=== PATIENT | female | born 1955 | race Caucasian/White ===

== ENCOUNTER → 2017-03-08 | Outpatient (CLI) | payer OTHER ==
[~2017-03-08] MED LIST: BIOTPOW17 PO; CHOL100010 PO; CITA20TA4 PO; CLX/20 PO; CYAN100048 PO; DICL1GEL12 EXT; HYDR-5688 PO; LOSA100T65 PO; MULT-506 PO; PRLSR20 PO; TRAM-10 PO; VITAMIN B12 SC; VITAMIN B12 SL
[2017-03-08 17:42] LABS: MEAN CELL VOLUME 93.2 fL (80-100); MEAN CORPUSCULAR HGB CONC 31.1 g/dl (32-36); MEAN PLATELET VOLUME 9.4 fL (7.4-10.4); PLATELET COUNT 254 K/uL (130-400); RED BLOOD COUNT 3.97 M/uL (4.2-5.4); WHITE BLOOD COUNT 3.91 K/uL (4.8-10.8)
[2017-03-08 18:06] LABS: ALT/SGPT 15 U/L (12-78); AST/SGOT 13 U/L (15-37); BLOOD UREA NITROGEN 14 mg/dl (7-18); BUN/CREATININE RATIO 24.5 (10-20); CALCIUM 8.6 mg/dl (8.5-10.1); CARBON DIOXIDE 30 mmol/L (21-32); CHLORIDE 107 mmol/L (98-107); CREATININE 0.57 mg/dl (0.60-1.20); GLUCOSE 76 mg/dl (70-99); POTASSIUM 4.7 mmol/L (3.5-5.1); SODIUM 142 mmol/L (136-145)
[2017-03-08 18:09] LABS: ALB/GLOB RATIO 1.1 (0.9-2); ALKALINE PHOSPHATASE 76 U/L (45-117); CHOLESTEROL 216 mg/dl (0-200); CHOLESTEROL/HDL RATIO 2.8; HDL CHOLESTEROL 76 mg/dl; LDL CHOLESTEROL CALCULATED 129 mg/dl; TRIGLYCERIDES 57 mg/dl (0-150); VERY LOW DENSITY LIPOPROT CALC 11 mg/dl
== END | disposition home or self-care (01) ==
LOC: C.LABBFT 12:13
PROVIDERS: ATTEND Physician Assistant Medical
DX: D64.9 Anemia, unspecified (principal); E78.5 Hyperlipidemia, unspecified; E55.9 Vitamin D deficiency, unspecified; E53.8 Deficiency of other specified B group vitamins

== ENCOUNTER 2017-03-27 08:52 | Inpatient (IN) | payer OTHER ==
[2017-03-27] VITALS (8 sets, daily range): BP systolic 111–134; BP diastolic 60–76; PULSE 68–79; TEMP 36.6–37.1; O2SAT 94–99; Ht 160 cm; Wt 67.2 kg
[~2017-03-27] VITALS: Ht 160 cm; Wt 67.2 kg
[~2017-03-27 08:52] MED LIST changes: -CLX/20 PO; -CYAN100048 PO; -HYDR-5688 PO
[2017-03-27] MEDS ORDERED: ONDANSETRON INJ 2 MG/ML 2 ML VIAL IV STA (09:10)
[2017-03-27] MEDS ORDERED: MoRPHine SULFATE 10 MG/ML CARP/VIAL IV STA (09:10)
[2017-03-27] MEDS ORDERED: OPTIRAY 320 IV PRN (09:15)
[2017-03-27] MEDS ORDERED: CLX/20 PO (09:46)
[2017-03-27 09:48] LABS: BASO % 0.2 %; BASO ABS # 0.01 K/uL (0-0.2); COMPLETE YES; EOS % 0.2 %; IG% 0.2 %; LYMPH % 8.9 %; LYMPH ABS # 0.56 K/uL (1.2-3.4); MEAN CELL VOLUME 90.9 fL (80-100); MEAN CORPUSCULAR HEMOGLOBIN 28.9 pg (25-34); MEAN CORPUSCULAR HGB CONC 31.8 g/dl (32-36); MEAN PLATELET VOLUME 9.4 fL (7.4-10.4); NEUT % 84.5 %; PLATELET COUNT 259 K/uL (130-400); RED BLOOD COUNT 4.29 M/uL (4.2-5.4); WHITE BLOOD COUNT 6.29 K/uL (4.8-10.8)
--- NOTE | 2017-03-27 09:48 | EMERGENCY ROOM VISIT NOTE ---
ED Visit Note First contact with patient: 09:01 I have seen and examined this patient with Marisol Montoya and generally agree with the treatment plan as discussed. Problem List Medical Problems: (1) Aortic stenosis Status: Chronic (2) Depressive Disorder Nec Status: Chronic (3) Hx-Venous Thrombosis&Embolism Status: Chronic (4) Hyperlipidemia Nec/Nos Status: Chronic (5) Hypertension Nos Status: Chronic (6) Lumb/Lumbosac Disc Degen Status: Chronic (7) Osteoarthrosis-Mult Site Status: Chronic (8) Other Chronic Pain Status: Chronic Surgical Problems: (1) Aortocoronary Bypass Status: Chronic (2) Bariatric Surgery Status Status: Resolved (3) Hip Joint Replacement Status Status: Chronic (4) Hx of cholecystectomy Status: Resolved (5) Intestinal Bypass Status Status: Resolved Current/Historical Medications Scheduled Citalopram (Citalopram Hydrobromide), 20 MG PO DAILY Losartan Potassium (Cozaar), 100 MG PO QAM Multivitamin (Multivitamin), 1 TAB PO QAM Tramadol (Ultram), 100 MG PO TID PRN Scheduled PRN Diclofenac Sodium (Topical) (Voltaren 1% Top Gel), 1 DOSE EXT DAILY PRN for Pain Omeprazole (Prilosec), 20 MG PO QAM PRN for Indigestion Allergies Coded Allergies: No Known Allergies (Verified , 12/29/15) Vital Signs Date Time Temp Pulse Resp B/P (MAP) Pulse Ox O2 Delivery O2 Flow Rate FiO2 03/27/17 09:32 98 Room Air 03/27/17 09:31 78 18 132/90 97 Room Air 03/27/17 09:30 80 03/27/17 08:56 36.7 83 18 157/72 98 Room Air Laboratory Results Test 03/27/17 09:15 Medications Administered Medications (Trade) Dose Ordered Sig/Luci Route Start Time Stop Time Status Last Admin Dose Admin Morphine Sulfate (MoRPHine SULFATE INJ) 6 mg NOW STAT IV 03/27/17 09:10 03/27/17 09:12 DC 03/27/17 09:25 6 MG Ondansetron HCl (Zofran Inj) 4 mg NOW STAT IV 03/27/17 09:10 03/27/17 09:13 DC 03/27/17 09:25 4 MG Departure Information Referrals Maurisio Srinivasan M.D. (PCP) Patient Instructions My [facility]
[2017-03-27] MEDS ORDERED: CHOL100010 PO (09:51)
[2017-03-27] MEDS ORDERED: CYAN100048 PO (09:51)
[2017-03-27 10:07] LABS: CALCIUM 8.8 mg/dl (8.5-10.1)
[2017-03-27 10:08] LABS: BUN/CREATININE RATIO 16.4 (10-20); CREATININE 0.56 mg/dl (0.60-1.20); POTASSIUM 3.8 mmol/L (3.5-5.1)
[2017-03-27] MEDS ORDERED: MoRPHine SULFATE 4 MG/ML 1 ML CARP\\VIAL IV STA ×2 (11:12→14:00)
[2017-03-27 12:44] LABS: URINE APPEARANCE CLEAR (CLEAR); URINE BILIRUBIN NEG (NEG); URINE COLOR YELLOW; URINE NITRITE NEG (NEG); URINE PH 5.5 (4.5-7.5); URINE SPECIFIC GRAVITY 1.009 (1.000-1.030); UROBILINOGEN NEG (NEG); ZZUR CULT IF INDIC CLEAN CATCH NO
--- NOTE | 2017-03-27 12:49 | DIAGNOSTIC IMAGING REPORT ---
ABDOMEN AND PELVIS CT WITH IV AND ORAL CONTRAST CT DOSE: 366.73 mGy.cm HISTORY: Pain periumbilical pain/history gastric bypass and adhesion removal TECHNIQUE: Multiaxial CT images of the abdomen and pelvis were performed following the use of intravenous and oral contrast. COMPARISON STUDY: 02/14/2012. FINDINGS: Lung bases are clear. Minimal pleural thickening bilaterally unchanged. Trace perihepatic ascites. Prior gastric bypass and cholecystectomy change. Findings of proximal to mid small bowel distention. No evidence for colonic distention. Moderate distention of the small bowel persists to the central and anterior pelvic region. Etiology of the obstructive pattern is unclear. No evidence for colonic distention. Trace amount of ascites within the pelvis. No significant abdominal or pelvic adenopathy. Slight biliary ductal prominence a postoperative basis. Prior bilateral total hip arthroplasties. IMPRESSION: 1. Findings consistent with developing distal small bowel obstructive change. 2. Etiology isn't clear, although there appears to be transitioning of caliber of the small bowel within the low anterior pelvic region. 3. Operative changes consistent with prior gastric bypass and cholecystectomy change. 4. Trace amount of perihepatic and pelvic ascites. Electronically signed by: Austyn Montoya M.D. 03/27/2017 12:48 PM Dictated Date/Time: 03/27/2017 12:38 PM
[2017-03-27 12:54] LABS: MANUAL MICROSCOPIC REQUIRED? NO; REVIEW REQ? NO
--- NOTE | 2017-03-27 14:51 | History and Physical ---
History & Physical Date Mar 27, 2017. Chief Complaint pt with worsening mid-abdominal pain since monday..nothing relieves it. mild nausea but no emesis. has a hx of gastric bypass, umbilical hernia repair times 2, once with a small segment of bowel resection, and a prior dx laparoscopy about 7 years ago for pain exactly like this. they lysed adhesions and she has been good ever since. History of Present Illness The patient is a 61 year old female with complaints of Past Medical/Surgical History Medical Problems: (1) Aortic stenosis (2) Depressive Disorder Nec (3) Hx-Venous Thrombosis&Embolism (4) Hyperlipidemia Nec/Nos (5) Hypertension Nos (6) Lumb/Lumbosac Disc Degen (7) Osteoarthrosis-Mult Site (8) Other Chronic Pain Surgical Problems: (1) Aortocoronary Bypass (2) Bariatric Surgery Status (3) Hip Joint Replacement Status (4) Hx of cholecystectomy (5) Intestinal Bypass Status Additional History Hepatic Disease: No Endocrine Disorder: No Kidney Disease: No Hypertension: No Heart Disease: No Bleeding Tendencies: No Infectious Diseases: No Allergies Coded Allergies: No Known Allergies (Verified , 12/29/15) Home Medications Scheduled Cholecalciferol (Vitamin D), 1 TAB PO DAILY Citalopram (Citalopram Hydrobromide), 20 MG PO DAILY Cyanocobalamin (Vitamin B-12), 1 TAB PO DAILY Losartan Potassium (Cozaar), 100 MG PO QAM Multivitamin (Multivitamin), 1 TAB PO QAM Tramadol (Ultram), 100 MG PO TID PRN Scheduled PRN Diclofenac Sodium (Topical) (Voltaren 1% Top Gel), 1 DOSE EXT DAILY PRN for Pain Omeprazole (Prilosec), 20 MG PO QAM PRN for Indigestion Physical Examination Skin: warm/dry Eyes: normal inspection, EOMI Head: normocephalic, atraumatic Neck: supple, trachea midline Respiratory/Chest: no respiratory distress Cardiovascular: regular rate, rhythm Abdomen / GI: + pertinent finding (epigastric/mid-abdominal ttp. no g/r/r. no peritoneal signs.) Neurologic/Psych: alert, oriented x 3 Diagnosis abdominal pain- pt sure it is adhesions again. no leukocytosis. ct showing mildly dilated bowel loops c/w sbo discussed options with pt. she is very frustrated with the pain. has not eaten since last night. discussed options/risks of surgery ( bleeding/infection/dvt/pe/mi/injury to bowel/bladder etc..). answered questions. will proceed with dx laparoscopy [facility]ING[facility].
[2017-03-27] MEDS ORDERED: ROCURONIUM BROMIDE 10 MG/ML 5 ML VIAL ONE (15:03)
[2017-03-27] MEDS ORDERED: LIDOCAINE HCL 2% 2 ML VIAL (20MG/ML) ONE (15:03)
[2017-03-27] MEDS ORDERED: PROPOFOL IV EMULSION 10 MG/ML 20 ML VIAL IV ONE (15:03)
[2017-03-27] MEDS ORDERED: GLYCOPYRROLATE INJ 0.2 MG/ML VIAL ONE ×2 (15:03→16:34)
[2017-03-27] MEDS ORDERED: FENTANYL CITRATE INJ 50 MCG/1 ML 2 ML VIAL ONE (15:03)
[2017-03-27] MEDS ORDERED: ONDANSETRON INJ 2 MG/ML 2 ML VIAL ONE (15:03)
[2017-03-27] MEDS ORDERED: NEOSTIGMINE METHYLSULFATE 5 MG/5 ML SYR ONE ×2 (15:03→16:34)
[2017-03-27] MEDS ORDERED: MIDAZOLAM HCL 1 MG/ML 2ML VIAL ONE (15:03)
[2017-03-27] MEDS ORDERED: DEXAMETHASONE SOD INJ 4 MG/ML VIAL ONE (15:03)
--- NOTE | 2017-03-27 15:32 | EMERGENCY ROOM VISIT NOTE ---
History First contact with patient: 09:01 Chief Complaint: ABDOMINAL PAIN Stated Complaint: PAIN IN ABD History of Present Illness The patient is a 61 year old female who presents to the Emergency Room with complaints of periumbilical abdominal pain that started Monday evening. The patient admits to some nausea but denies any vomiting. The patient denies any change in bowel habits or any hematochezia or melena. The patient denies any urinary symptoms of frequency, urgency, dysuria. The patient states it feels similar to when she had adhesions 7 years ago. The patient had a gastric bypass and umbilical hernia repair 12 years ago. Her initial gastric bypass was performed at [facility] and the surgeon and went to [facility]. She had adhesion surgery performed at [facility]. Review of Systems 10 system review was performed and was negative unless stated otherwise history of present illness. Past Medical/Surgical History Medical Problems: (1) Aortic stenosis (2) Depressive Disorder Nec (3) Hx-Venous Thrombosis&Embolism (4) Hyperlipidemia Nec/Nos (5) Hypertension Nos (6) Lumb/Lumbosac Disc Degen (7) Osteoarthrosis-Mult Site (8) Other Chronic Pain Surgical Problems: (1) Aortocoronary Bypass (2) Bariatric Surgery Status (3) Hip Joint Replacement Status (4) Hx of cholecystectomy (5) Intestinal Bypass Status Social History Smoking Status: Never Smoker Alcohol Use: none Housing Status: lives alone Occupation Status: unemployed Current/Historical Medications Scheduled Cholecalciferol (Vitamin D), 1 TAB PO DAILY Citalopram (Citalopram Hydrobromide), 20 MG PO DAILY Cyanocobalamin (Vitamin B-12), 1 TAB PO DAILY Losartan Potassium (Cozaar), 100 MG PO QAM Multivitamin (Multivitamin), 1 TAB PO QAM Tramadol (Ultram), 100 MG PO TID PRN Scheduled PRN Diclofenac Sodium (Topical) (Voltaren 1% Top Gel), 1 DOSE EXT DAILY PRN for Pain Omeprazole (Prilosec), 20 MG PO QAM PRN for Indigestion Allergies Coded Allergies: No Known Allergies (Verified , 12/29/15) Physical Exam Vital Signs Date Time Temp Pulse Resp B/P (MAP) Pulse Ox O2 Delivery O2 Flow Rate FiO2 03/27/17 14:57 78 16 166/76 96 Room Air 03/27/17 14:19 76 20 150/70 97 Room Air 03/27/17 13:29 85 03/27/17 11:34 74 20 167/75 97 Room Air 03/27/17 11:04 78 16 137/80 96 Room Air 03/27/17 09:32 98 Room Air 03/27/17 09:31 78 18 132/90 97 Room Air 03/27/17 09:30 80 03/27/17 08:56 36.7 83 18 157/72 98 Room Air Physical Exam GENERAL: 61-y started about herear-old white female appears in no acute distress. MENTAL Status: Alert and oriented 3. EYES: No icterus noted MOUTH: Mucosa is moist. NECK: Supple, no lymphadenopathy noted. No carotid bruits noted. LUNGS: Clear auscultation without wheezes rales or rhonchi. CARDIAC: Regular rate and rhythm without murmur. Pulses is full and equal throughout. BACK: No CVA tenderness noted. ABDOMEN: Positive bowel sounds all 4 quadrants. Soft, very umbilical tenderness noted otherwise nontender to palpation without organomegaly or masses. EXTREMITIES: No cyanosis or edema noted. Medical Decision & Procedures ER Provider Diagnostic Interpretation: ABDOMEN AND PELVIS CT WITH IV AND ORAL CONTRAST CT DOSE: 366.73 mGy.cm HISTORY: Pain periumbilical pain/history gastric bypass and adhesion removal TECHNIQUE: Multiaxial CT images of the abdomen and pelvis were performed following the use of intravenous and oral contrast. COMPARISON STUDY: 02/14/2012. FINDINGS: Lung bases are clear. Minimal pleural thickening bilaterally unchanged. Trace perihepatic ascites. Prior gastric bypass and cholecystectomy change. Findings of proximal to mid small bowel distention. No evidence for colonic distention. Moderate distention of the small bowel persists to the central and anterior pelvic region. Etiology of the obstructive pattern is unclear. No evidence for colonic distention. Trace amount of ascites within the pelvis. No significant abdominal or pelvic adenopathy. Slight biliary ductal prominence a postoperative basis. Prior bilateral total hip arthroplasties. IMPRESSION: 1. Findings consistent with developing distal small bowel obstructive change. 2. Etiology isn't clear, although there appears to be transitioning of caliber of the small bowel within the low anterior pelvic region. 3. Operative changes consistent with prior gastric bypass and cholecystectomy change. 4. Trace amount of perihepatic and pelvic ascites. Electronically signed by: Austyn Montoya M.D. 03/27/2017 12:48 PM Laboratory Results 03/27/17 09:15 Red Blood Count 4.29, Mean Corpuscular Volume 90.9, Mean Corpuscular Hemoglobin 28.9, Mean Corpuscular Hemoglobin Concent 31.8, Mean Platelet Volume 9.4, Neutrophils (%) (Auto) 84.5, Lymphocytes (%) (Auto) 8.9, Monocytes (%) (Auto) 6.0, Eosinophils (%) (Auto) 0.2, Basophils (%) (Auto) 0.2, Neutrophils # (Auto) 5.32, Lymphocytes # (Auto) 0.56, Monocytes # (Auto) 0.38, Eosinophils # (Auto) 0.01, Basophils # (Auto) 0.01 03/27/17 09:15 Test 03/27/17 09:15 03/27/17 11:48 White Blood Count 6.29 K/uL (4.8-10.8) Red Blood Count 4.29 M/uL (4.2-5.4) Hemoglobin 12.4 g/dL (12.0-16.0) Hematocrit 39.0 % (37-47) Mean Corpuscular Volume 90.9 fL (80-100) Mean Corpuscular Hemoglobin 28.9 pg (25-34) Mean Corpuscular Hemoglobin Concent 31.8 g/dl (32-36) Platelet Count 259 K/uL (130-400) Mean Platelet Volume 9.4 fL (7.4-10.4) Neutrophils (%) (Auto) 84.5 % Lymphocytes (%) (Auto) 8.9 % Monocytes (%) (Auto) 6.0 % Eosinophils (%) (Auto) 0.2 % Basophils (%) (Auto) 0.2 % Neutrophils # (Auto) 5.32 K/uL (1.4-6.5) Lymphocytes # (Auto) 0.56 K/uL (1.2-3.4) Monocytes # (Auto) 0.38 K/uL (0.11-0.59) Eosinophils # (Auto) 0.01 K/uL (0-0.5) Basophils # (Auto) 0.01 K/uL (0-0.2) RDW Standard Deviation 49.0 fL (36.4-46.3) RDW Coefficient of Variation 14.8 % (11.5-14.5) Immature Granulocyte % (Auto) 0.2 % Immature Granulocyte # (Auto) 0.01 K/uL (0.00-0.02) Anion Gap 12.0 mmol/L (3-11) Est Creatinine Clear Calc Drug Dose 95.9 ml/min Estimated GFR () 115.8 Estimated GFR (Non- 99.9 BUN/Creatinine Ratio 16.4 (10-20) Calcium Level 8.8 mg/dl (8.5-10.1) Total Bilirubin 0.5 mg/dl (0.2-1) Direct Bilirubin 0.1 mg/dl (0-0.2) Aspartate Amino Transf (AST/SGOT) 20 U/L (15-37) Alanine Aminotransferase (ALT/SGPT) 19 U/L (12-78) Alkaline Phosphatase 75 U/L (45-117) Total Protein 6.7 gm/dl (6.4-8.2) Albumin 3.4 gm/dl (3.4-5.0) Lipase 118 U/L (73-393) Urine Color YELLOW Urine Appearance CLEAR (CLEAR) Urine pH 5.5 (4.5-7.5) Urine Specific [place] 1.009 (1.000-1.030) Urine Protein NEG (NEG) Urine Glucose (UA) NEG (NEG) Urine Ketones TRACE (NEG) Urine Occult Blood NEG (NEG) Urine Nitrite NEG (NEG) Urine Bilirubin NEG (NEG) Urine Urobilinogen NEG (NEG) Urine Leukocyte Esterase NEG (NEG) Medications Administered Medications (Trade) Dose Ordered Sig/Luci Route Start Time Stop Time Status Last Admin Dose Admin Morphine Sulfate (MoRPHine SULFATE INJ) 6 mg NOW STAT IV 03/27/17 09:10 03/27/17 09:12 DC 03/27/17 09:25 6 MG Ondansetron HCl (Zofran Inj) 4 mg NOW STAT IV 03/27/17 09:10 03/27/17 09:13 DC 03/27/17 09:25 4 MG Morphine Sulfate (MoRPHine SULFATE INJ) 4 mg NOW STAT IV 03/27/17 11:12 03/27/17 11:13 DC 03/27/17 11:35 4 MG Morphine Sulfate (MoRPHine SULFATE INJ) 4 mg NOW STAT IV 03/27/17 14:00 03/27/17 14:01 DC 03/27/17 14:58 4 MG ED Course EMR patient's medication list were reviewed. The patient was evaluated. IV access was obtained. The patient was given Zofran 4 mg IV and morphine 6 mg IV. CBC and differential, renal profile, LFTs and lipase levels were ordered. Urinalysis was ordered. The patient's initial blood pressure was 157/72. On repeat was 132/90. CT of the abdomen and pelvis was ordered and interpreted by the radiologist as above. The patient was reevaluated. And was in slight discomfort and was requesting more pain medication. The patient was given morphine 4 mg IV. Labs are reviewed and were unremarkable. White count was normal. The patient was again reevaluated and was in pain and therefore was given additional 4 mg of morphine IV. CT of the abdomen was reviewed with evidence of small bowel obstruction. The case was discussed with Dr. Hoff who independently evaluated the patient. The patient's prior surgeon was Dr. Ben John. The patient last had surgery performed by Dr. John at [facility]. I queried the doctor and he is now practicing at [facility]. I contacted his office staff who informed me that the doctor is no longer doing general surgery that all he does is a bariatric surgery. I informed the patient. Admitting contacted Dr. Tanner, [facility] surgery who is willing to accept the patient here at [facility]. The patient was admitted. Throughout the patient's stay I discussed with the patient that her blood pressure was elevated and that she would need to follow with her family physician 2 days after discharge for recheck. The patient verbalized understanding. Medical Decision Differential diagnoses include reflux, gastritis, gastroenteritis, pancreatitis , cholelithiasis, cholecystitis, appendicitis, mesenteric ischemia, pyelonephritis, urinary tract infection, renal colic, diverticulitis, shingles, bowel obstruction, intussusception, hernia, ovarian torsion, ruptured ovarian cyst, Impression Primary Impression: Small bowel obstruction Departure Information Dispostion Being Evaluated By Surgeon Condition GOOD Referrals Maurisio Srinivasan M.D. (PCP) Patient Instructions My [facility]
[2017-03-27] MEDS ORDERED: BUPIVACAINE/EPINEPHRINE 0.5% MPF 1:200,000 30 ML VIAL ONE (15:34)
[2017-03-27] MEDS ORDERED: PHENYLEPHRINE 100MCG/ML 5ML SYR IV PRN (16:00)
[2017-03-27] MEDS ORDERED: ATROPINE SULFATE 0.1 MG/ML 5ML SYR IV PRN (16:00)
[2017-03-27] MEDS ORDERED: MoRPHine SULFATE 10 MG/ML CARP/VIAL IV PRN (16:00)
[2017-03-27] MEDS ORDERED: MEPERIDINE HCL 25 MG/ML CARP IV PRN (16:00)
[2017-03-27] MEDS ORDERED: ONDANSETRON INJ 2 MG/ML 2 ML VIAL IV PRN (16:00)
[2017-03-27] MEDS ORDERED: FLUMAZENIL 0.1 MG/1 ML 10 ML VIAL IV PRN (16:00)
[2017-03-27] MEDS ORDERED: LABETALOL HCL IV 5 MG/ML 20ML IV PRN (16:00)
[2017-03-27] MEDS ORDERED: EpHEDrine SULFATE INJ 50 MG/ML AMP IV PRN (16:00)
[2017-03-27] MEDS ORDERED: NALOXONE HCL 0.4 MG/1 ML VIAL/CARP IV PRN (16:00)
[2017-03-27] MEDS ORDERED: CEFAZOLIN SOD 1 GM VIAL ONE (16:18)
[2017-03-27] MEDS: HYDROmorphone INJ 1 MG/ML SYR IV PRN ×4 (17:15→17:30)
[2017-03-27] MEDS ORDERED: TRAMADOL HCL 50 MG TAB PO PRN (17:15)
[2017-03-27] MEDS ORDERED: MoRPHine SULFATE 4 MG/ML 1 ML CARP\\VIAL IV PRN (17:15)
[2017-03-27] MEDS ORDERED: LABETALOL HCL IV 5 MG/ML 20ML IV ONE (17:18)
--- NOTE | 2017-03-27 17:19 | [facility] Operative Report ---
Operative Report Operative Date Mar 27, 2017. Pre-Operative Diagnosis Abdominal pain Post-Operative Diagnosis SBO secondary to solitary thick band adhesion Procedure(s) Performed dx laparoscopy, enterolysis, release of SBO Surgeon Dr. Tanner [employer] Teacher Surgeon(s) Josr Rodriguez PA-C Estimated Blood Loss 10ml Findings SBO secondary to thick adhesive band Specimens None per surgeon Anesthesia get Complication(s) None Disposition Recovery Room / PACU I attest to the content of the Intraoperative Record and any orders documented therein. Any exceptions are noted below.
--- NOTE | 2017-03-27 17:41 | OPERATIVE REPORT ---
DATE OF OPERATION: 03/27/2017 PREOPERATIVE DIAGNOSES: Abdominal pain, nausea, vomiting and partial small-bowel obstruction. POSTOPERATIVE DIAGNOSES: Same with small-bowel obstruction secondary to a solitary thick band adhesion in the lower abdomen. PROCEDURES: Diagnostic laparoscopy, release of small-bowel obstruction and enterolysis. SURGEON: Dr. Tanner. CASHIERS SUPERVISOR: Noe Rodriguez PA-C ESTIMATED BLOOD LOSS: Approximately 5 mL. COMPLICATIONS: No immediate. ANESTHESIA: General. CONDITION: The patient tolerated the procedure well. OPERATIVE NOTE: After informed consent was obtained, the patient was taken to the operating suite, placed in the supine position. After successful intubation, a Irene catheter was placed and the abdomen was sterilely prepped and draped in usual fashion. Supraumbilical midline incision was made with an 11 blade scalpel and carried down through the soft tissue using electrocautery. The anterior rectus fascia was opened using electrocautery and two #0 Vicryl stay sutures were placed. Peritoneum was elevated with hemostats and incised under direct vision using a Metzenbaum scissors. A finger sweep was performed. A 12 mm Alize trocar was placed. The abdomen was insufflated to 18 mmHg. Laparoscope was inserted and the abdomen examined 360 degrees. Immediately in the abdomen, we noted that she had a lot of markedly dilated small bowel. It was somewhat difficult to insufflate the abdomen because of her prior panniculectomy/abdominoplasty. Nonetheless, I placed a right mid abdominal 5 mm trocar and a right upper quadrant 5 mm trocar. We began by starting with one of the dilated loops and running it distally. I continued to pull the bowel superiorly. Eventually as we came down towards the right lower quadrant to the lower midline, I noted a transition point. Went from markedly dilated to decompressed. There was a solitary, probably 1 cm thick adhesive band causing the issue. I was able to divide this band using a Harmonic scalpel. This released the bowel obstruction. I did continue running distally. The bowel was of normal caliber the whole rest of the way to the cecum. I looked around the abdomen. There were a few adhesions from the liver and omentum and the very upper portion of the abdomen consistent with her prior gastric bypass; however, no other gross abnormalities were identified. This seemed to be clearly her primary issue. No other abnormalities were identified. The trocars were all removed and the abdomen was desufflated. The fascia of the camera port was closed using 0 Vicryl in a [id number] fashion. All the wounds were irrigated and closed using 4-0 Monocryl. Marcaine was injected around them for postoperative analgesia and skin glue used as a dressing. The patient was awakened, extubated, and transferred to recovery in stable condition. I attest to the content of the Intraoperative Record and any orders documented therein. Any exception s are noted below.
--- NOTE | 2017-03-27 17:55 | Anesthesiology Progress Note ---
Anesthesia Post Op Note Date & Time Mar 27, 2017 at 17:54 Vital Signs Pain Intensity: 3 Vital Signs Past 12 Hours Date Time Temp Pulse Resp B/P (MAP) Pulse Ox O2 Delivery O2 Flow Rate FiO2 03/27/17 17:45 36.4 77 18 160/69 99 Nasal Cannula 3 03/27/17 17:35 74 18 148/70 99 Nasal Cannula 3 03/27/17 17:25 75 18 164/67 100 Mask 10 03/27/17 17:15 72 18 142/99 100 Mask 10 03/27/17 17:07 36.8 74 18 166/76 100 Mask 10 03/27/17 14:57 78 16 166/76 96 Room Air 03/27/17 14:19 76 20 150/70 97 Room Air 03/27/17 13:29 85 03/27/17 11:34 74 20 167/75 97 Room Air 03/27/17 11:04 78 16 137/80 96 Room Air 03/27/17 09:32 98 Room Air 03/27/17 09:31 78 18 132/90 97 Room Air 03/27/17 09:30 80 03/27/17 08:56 36.7 83 18 157/72 98 Room Air Notes Mental Status: alert / awake / arousable, participated in evaluation Pt Amnestic to Procedure: Yes Nausea / Vomiting: adequately controlled Pain: adequately controlled Airway Patency, RR, SpO2: stable & adequate BP & HR: stable & adequate Hydration State: stable & adequate Anesthetic Complications: no major complications apparent
[2017-03-27] MEDS: LACTATED RINGER'S 1000ML 1,000 ML IV SCH (20:16)
[2017-03-27] MEDS ORDERED: IV FLUIDS COMPLETED PRN (20:30)
[2017-03-27] MEDS: HYDROCODONE/ACETAMOPHEN 5/325MG TAB PO PRN (21:27)
[2017-03-28] MEDS: LACTATED RINGER'S 1000ML 1,000 ML IV SCH ×3 (03:02→22:44)
[2017-03-28] MEDS: HYDROCODONE/ACETAMOPHEN 5/325MG TAB PO PRN ×4 (03:06→17:21)
[2017-03-28 04:01] VITALS: BP 153/78; PULSE 81; TEMP 36.8; O2SAT 96
[2017-03-28 06:15] LABS: BASO % 0.2 %; BASO ABS # 0.01 K/uL (0-0.2); COMPLETE YES; EOS % 0.3 %; HEMATOCRIT 33.7 % (37-47); IG% 0.3 %; LYMPH % 14.2 %; MEAN CELL VOLUME 92.3 fL (80-100); MEAN CORPUSCULAR HEMOGLOBIN 29.9 pg (25-34); MEAN CORPUSCULAR HGB CONC 32.3 g/dl (32-36); MEAN PLATELET VOLUME 10.1 fL (7.4-10.4); MONO % 10.3 %; NEUT % 74.7 %; PLATELET COUNT 211 K/uL (130-400); RED BLOOD COUNT 3.65 M/uL (4.2-5.4); WHITE BLOOD COUNT 6.33 K/uL (4.8-10.8)
[2017-03-28 06:48] LABS: BUN/CREATININE RATIO 16.6 (10-20); CALCIUM 8.5 mg/dl (8.5-10.1); CREATININE 0.49 mg/dl (0.60-1.20); POTASSIUM 3.9 mmol/L (3.5-5.1)
[2017-03-28 07:11] VITALS: BP 141/64; PULSE 82; TEMP 37.2; O2SAT 96
[2017-03-28] MEDS ORDERED: HYDROCODONE/ACETAMOPHEN 5/325MG TAB ONE (08:21)
[2017-03-28] MEDS: MULTIVITAMIN TAB PO SCH (08:26)
--- NOTE | 2017-03-28 08:46 | Surgery Progress Note ---
Surgery Progress Note Date of Service Mar 28, 2017. Subjective Post OP Day: 1 + flatus, No nausea, No vomiting Patient reports that her abdomen feels "sore" this morning. She denies nausea or vomiting. Reports that she is not hungry yet. Objective Vital Signs: Date Time Temp Pulse Resp B/P (MAP) Pulse Ox O2 Delivery O2 Flow Rate FiO2 03/28/17 07:11 37.2 82 18 141/64 (89) 96 Room Air 03/28/17 04:01 36.8 81 16 153/78 (103) 96 Room Air 03/27/17 23:45 Room Air 03/27/17 22:57 36.8 73 16 115/70 (85) 96 Room Air 03/27/17 21:08 37.1 68 16 111/70 (84) 97 Nasal Cannula 3.0 03/27/17 20:08 36.8 72 17 113/76 (88) 99 Nasal Cannula 3.0 03/27/17 19:10 36.6 73 16 113/60 (77) 99 Nasal Cannula 3.0 03/27/17 18:45 Nasal Cannula 3.0 03/27/17 18:40 36.9 73 18 112/73 (86) 99 Nasal Cannula 2.0 03/27/17 18:27 36.9 79 18 134/74 Nasal Cannula 3.0 03/27/17 18:10 36.9 79 18 134/74 (94) 94 Nasal Cannula 3.0 03/27/17 18:10 Nasal Cannula 3.0 03/27/17 18:00 36.4 75 18 138/60 99 Nasal Cannula 3 03/27/17 17:45 36.4 77 18 160/69 99 Nasal Cannula 3 03/27/17 17:35 74 18 148/70 99 Nasal Cannula 3 03/27/17 17:25 75 18 164/67 100 Mask 10 03/27/17 17:15 72 18 142/99 100 Mask 10 03/27/17 17:07 36.8 74 18 166/76 100 Mask 10 03/27/17 14:57 78 16 166/76 96 Room Air 03/27/17 14:19 76 20 150/70 97 Room Air 03/27/17 13:29 85 03/27/17 11:34 74 20 167/75 97 Room Air 03/27/17 11:04 78 16 137/80 96 Room Air 03/27/17 09:32 98 Room Air 03/27/17 09:31 78 18 132/90 97 Room Air 03/27/17 09:30 80 03/27/17 08:56 36.7 83 18 157/72 98 Room Air General Appearance: WD/WN, no apparent distress Respiratory/Chest: no respiratory distress Abdomen: soft (slight tenderness with palpation. ) Laboratory Results: Results Past 24 Hours Test 03/27/17 09:15 03/27/17 11:48 03/28/17 05:20 Range/Units White Blood Count 6.29 6.33 4.8-10.8 K/uL Red Blood Count 4.29 3.65 4.2-5.4 M/uL Hemoglobin 12.4 10.9 12.0-16.0 g/dL Hematocrit 39.0 33.7 37-47 % Mean Corpuscular Volume 90.9 92.3 80-100 fL Mean Corpuscular Hemoglobin 28.9 29.9 25-34 pg Mean Corpuscular Hemoglobin Concent 31.8 32.3 32-36 g/dl Platelet Count 259 211 130-400 K/uL Mean Platelet Volume 9.4 10.1 7.4-10.4 fL Neutrophils (%) (Auto) 84.5 74.7 % Lymphocytes (%) (Auto) 8.9 14.2 % Monocytes (%) (Auto) 6.0 10.3 % Eosinophils (%) (Auto) 0.2 0.3 % Basophils (%) (Auto) 0.2 0.2 % Neutrophils # (Auto) 5.32 4.73 1.4-6.5 K/uL Lymphocytes # (Auto) 0.56 0.90 1.2-3.4 K/uL Monocytes # (Auto) 0.38 0.65 0.11-0.59 K/uL Eosinophils # (Auto) 0.01 0.02 0-0.5 K/uL Basophils # (Auto) 0.01 0.01 0-0.2 K/uL RDW Standard Deviation 49.0 50.7 36.4-46.3 fL RDW Coefficient of Variation 14.8 14.9 11.5-14.5 % Immature Granulocyte % (Auto) 0.2 0.3 % Immature Granulocyte # (Auto) 0.01 0.02 0.00-0.02 K/uL Sodium Level 141 142 136-145 mmol/L Potassium Level 3.8 3.9 3.5-5.1 mmol/L Chloride Level 106 105 98-107 mmol/L Carbon Dioxide Level 23 30 21-32 mmol/L Anion Gap 12.0 7.0 3-11 mmol/L Blood Urea Nitrogen 9 8 7-18 mg/dl Creatinine 0.56 0.49 0.60-1.20 mg/dl Est Creatinine Clear Calc Drug Dose 95.9 109.6 ml/min Estimated GFR () 115.8 121.0 Estimated GFR (Non- 99.9 104.4 BUN/Creatinine Ratio 16.4 16.6 10-20 Random Glucose 117 102 70-99 mg/dl Calcium Level 8.8 8.5 8.5-10.1 mg/dl Total Bilirubin 0.5 0.2-1 mg/dl Direct Bilirubin 0.1 0-0.2 mg/dl Aspartate Amino Transf (AST/SGOT) 20 15-37 U/L Alanine Aminotransferase (ALT/SGPT) 19 12-78 U/L Alkaline Phosphatase 75 45-117 U/L Total Protein 6.7 6.4-8.2 gm/dl Albumin 3.4 3.4-5.0 gm/dl Lipase 118 73-393 U/L Urine Color YELLOW Urine Appearance CLEAR CLEAR Urine pH 5.5 4.5-7.5 Urine Specific [place] 1.009 1.000-1.030 Urine Protein NEG NEG Urine Glucose (UA) NEG NEG Urine Ketones TRACE NEG Urine Occult Blood NEG NEG Urine Nitrite NEG NEG Urine Bilirubin NEG NEG Urine Urobilinogen NEG NEG Urine Leukocyte Esterase NEG NEG Assessment & Plan POD #1- s/p Diagnostic Laparoscopy, Release of Small Bowel Obstruction and Enterolysis. Dr. Tanner in to see patient- Goals- pain control, advance diet. Patient reports that she takes Tramadol 100mg TID at home daily- will increase her [place] from 1 tab PO q4H to 2 tab PO q4H PRN for pain. Spoke with patient's nurse about pain medication. Patient on clear liquids, reports that she is not hungry yet- will advance diet as tolerated. Will continue to monitor- possible discharge tomorrow or next day if pain is controlled and patient is tolerating diet. 03/28/17 pt seen . agree with above. d/w nursing regarding improving post op pain control. not ready for d/c. increase activity. clear liquids
[2017-03-28] MEDS ORDERED: CITALOPRAM 20 MG TAB PO SCH (09:00)
[2017-03-28] MEDS ORDERED: LOSARTAN POTASSIUM 50 MG TAB PO SCH (09:00)
[2017-03-28] MEDS ORDERED: TRAMADOL HCL 50 MG TAB PO SCH (14:00)
[2017-03-28] MEDS ORDERED: NURSING VERBAL MED ORDER ONE (16:00)
[2017-03-28 16:36] VITALS: BP 157/76; PULSE 76; TEMP 37.6; O2SAT 96
[2017-03-28] MEDS ORDERED: PANTOprazole SOD 40 MG TAB PO SCH (21:00)
[2017-03-28] MEDS: TRAMADOL HCL 50 MG TAB PO SCH (21:08)
[2017-03-28 23:18] VITALS: BP 156/68; PULSE 88; TEMP 37; O2SAT 95
[2017-03-29] MEDS: HYDROCODONE/ACETAMOPHEN 5/325MG TAB PO PRN ×2 (01:42→05:51)
[2017-03-29 07:43] VITALS: BP 138/63; PULSE 70; TEMP 36.8; O2SAT 97
--- NOTE | 2017-03-29 08:08 | Surgery Progress Note ---
Surgery Progress Note Date of Service Mar 29, 2017. Subjective Post OP Day: 2 + feeling well, + pain controlled, + diet (regular) Objective Vital Signs: Date Time Temp Pulse Resp B/P (MAP) Pulse Ox O2 Delivery O2 Flow Rate FiO2 03/29/17 07:43 36.8 70 16 138/63 (88) 97 Room Air 03/29/17 00:04 Room Air 03/28/17 23:18 37.0 88 16 156/68 (97) 95 Room Air 03/28/17 16:36 37.6 76 18 157/76 (103) 96 Room Air 03/28/17 15:50 Room Air Abdomen: non tender, non distended, soft Assessment & Plan s/p laparoscopy, lysis of adhesive band feeling better today tolerating diet will establish a plan for home analgesia (on bid Ultram + prn [place] here) likely d/c later today
[2017-03-29] MEDS: MULTIVITAMIN TAB PO SCH (08:54)
[2017-03-29] MEDS: TRAMADOL HCL 50 MG TAB PO SCH (08:55)
[2017-03-29] MEDS: LACTATED RINGER'S 1000ML 1,000 ML IV SCH (09:05)
--- NOTE | 2017-03-29 10:05 | Discharge Instructions ---
Discharge Instructions Date of Service Mar 29, 2017. Admission Reason for Admission: S/P Lysis Of Adhesions Discharge Discharge Diagnosis / Problem: laparoscopy, lysis of adhesion Discharge Goals Goal(s): Decrease discomfort Activity Recommendations Activity Limitations: as noted below Lifting Limitations: no more than 10 pounds Shower/Bathe: no limitations Driving or Machine Use: resume 3 days after discharge . Instructions / Follow-Up Instructions / Follow-Up Dr. Tanner in 2 weeks, call [phone] to schedule, [address] Current Hospital Diet Patient's current hospital diet: Regular Diet Discharge Diet Recommended Diet: Regular Diet Procedures Procedures Performed: Diagnostic Laparoscopy, release of small bowel obstruction, enterolysis Pending Studies Studies pending at discharge: no Laboratory Results Lipid Panel Test 03/08/17 12:16 Range/Units Triglycerides Level 57 0-150 mg/dl Cholesterol Level 216 H 0-200 mg/dl HDL Cholesterol 76 mg/dl Cholesterol/HDL Ratio 2.8 LDL Cholesterol, Calculated 129 mg/dl Medical Emergencies . Who to Call and When: Medical Emergencies: If at any time you feel your situation is an emergency, please call 911 immediately. . Non-Emergent Contact Non-Emergency issues call your: Surgeon Call Non-Emergent contact if: you have a fever, temperature is above 101.5, your pain is not controlled, wound has increased redness, wound has increased pain, you have any medication questions . "Provider Documentation" section prepared by Josr Rodriguez. . VTE Core Measure Inpt VTE Proph given/why not?: SCD's
[2017-03-29] MEDS ORDERED: HYDR-5688 PO (10:11)
[2017-03-29 11:29] VITALS: BP 138/63; PULSE 70; TEMP 36.8; O2SAT 97
--- NOTE | 2017-03-29 14:54 | DISCHARGE SUMMARY ---
PRIMARY DISCHARGE DIAGNOSIS: Small-bowel obstruction. SECONDARY DISCHARGE DIAGNOSES: 1. History of gastric bypass. 2. Hypertension. 3. Osteoarthritis. 4. Depression. 5. Hyperlipidemia. 6. Aortic stenosis. PROCEDURE: Diagnostic laparoscopy, release of small-bowel obstruction and enterolysis. HOSPITAL COURSE: The patient is a 61-year-old female status post gastric bypass surgery who presented to the Emergency Department with a complaint of abdominal pain and nausea. Her pain was persistent and felt similar to previous bowel obstruction, which required laparoscopy. Her CT did show a developing obstruction with a transition point in the pelvic region. She was taken to the operating room that afternoon for laparoscopy. We did identify 1 adhesive band causing small-bowel obstruction, released this. The procedure was well tolerated. She was transferred to the surgical floor. She was able to tolerate an advancing diet during the day. Her pain control was marginal. She takes Ultram regularly and her pain was better controlled with [place]. By postoperative day #2, she was tolerating regular diet and had moved her bowels. Her pain control was better with the addition of [place]. Her abdomen was soft, nondistended. Incisions were dry. She was stable for discharge. DISCHARGE INSTRUCTIONS: Discharged home. Follow up with Dr. Tanner in 2 weeks. DISCHARGE MEDICATIONS: [place] 1-2 tablets every 4 hours as needed for pain during the day. She can continue to take her Ultram 100 mg in the morning and in the evening and then transition back to taking Ultram 3 times a day and discontinue the [place]. Resume Celexa 20 mg daily, vitamin B12 one tablet daily, vitamin D 1 tablet daily and Voltaren gel as needed, Cozaar 100 mg daily, daily multivitamin, and Prilosec 20 mg daily.
[2017-03-29] MEDS ORDERED: LOSARTAN POTASSIUM 50 MG TAB PO SCH (21:00)
[2017-03-29] MEDS ORDERED: CITALOPRAM 20 MG TAB PO SCH (21:00)
== END 2017-03-29 11:59 | disposition home or self-care (01) | DRG 337 ==
LOC: C.EDB 08:53 → C.MSW 17:41 → ENRESERV 17:46 → OBSVTOIN 03-28 09:11
PROVIDERS: ADMIT Surgery; ATTEND Surgery
PROC: 0DN84ZZ Release Small Intestine, Percutaneous Endoscopic Approach (ICD-10-PCS; principal; 2017-03-27 15:00)
DX: K56.5 Intestinal adhesions [bands] with obstruction (postinfection) (principal); E78.5 Hyperlipidemia, unspecified; I10 Essential (primary) hypertension; F32.9 Major depressive disorder, single episode, unspecified; Z79.899 Other long term (current) drug therapy; Z98.84 Bariatric surgery status

== ENCOUNTER → 2018-03-06 | Outpatient (CLI) | payer OTHER ==
[~2018-03-06] MED LIST changes: -BIOTPOW17 PO; -CITA20TA4 PO; +CLX/20 PO; +CYAN100048 PO; -VITAMIN B12 SC; -VITAMIN B12 SL
[2018-03-06 16:37] LABS: BASO ABS # 0.04 K/uL (0-0.2); EOS % 3.6 %; EOS ABS # 0.14 K/uL (0-0.5); HEMATOCRIT 35.7 % (37-47); HEMOGLOBIN 11.6 g/dL (12.0-16.0); IG# 0.01 K/uL (0.00-0.02); LYMPH % 23.9 %; LYMPH ABS # 0.93 K/uL (1.2-3.4); MEAN CELL VOLUME 92.2 fL (80-100); MEAN CORPUSCULAR HGB CONC 32.5 g/dl (32-36); MEAN PLATELET VOLUME 9.7 fL (7.4-10.4); MONO % 8.2 %; MONO ABS # 0.32 K/uL (0.11-0.59); NEUT ABS # 2.45 K/uL (1.4-6.5); PLATELET COUNT 245 K/uL (130-400); RED CELL DISTRIBUTION WIDTH CV 15.1 % (11.5-14.5); WHITE BLOOD COUNT 3.89 K/uL (4.8-10.8)
[2018-03-06 16:53] LABS: ALBUMIN 3.6 gm/dl (3.4-5.0); ALKALINE PHOSPHATASE 72 U/L (45-117); ALT/SGPT 17 U/L (12-78); AST/SGOT 19 U/L (15-37); BLOOD UREA NITROGEN 11 mg/dl (7-18); CALCIUM 8.7 mg/dl (8.5-10.1); CARBON DIOXIDE 29 mmol/L (21-32); CHOLESTEROL 212 mg/dl (0-200); CREATININE 0.56 mg/dl (0.60-1.20); GLUCOSE 75 mg/dl (70-99); LDL CHOLESTEROL CALCULATED 134 mg/dl; POTASSIUM 4.5 mmol/L (3.5-5.1); SODIUM 141 mmol/L (136-145); TOTAL PROTEIN 6.8 gm/dl (6.4-8.2); TRANSFERRIN 223 mg/dl (200-360)
== END | disposition home or self-care (01) ==
LOC: C.LABBFT 11:50
PROVIDERS: ATTEND Internal Medicine
DX: I35.0 Nonrheumatic aortic (valve) stenosis (principal); E78.5 Hyperlipidemia, unspecified; D50.9 Iron deficiency anemia, unspecified; E53.8 Deficiency of other specified B group vitamins; E55.9 Vitamin D deficiency, unspecified

== ENCOUNTER 2022-09-07 14:55 | Observation (INO) ==
[2022-09-07] MEDS ORDERED: ASPIRIN CHEW 324 MG PO STA (15:15)
[2022-09-07] MEDS ORDERED: SODIUM CHLORIDE 0.9% 500 ML IV ONE (15:15)
--- NOTE | 2022-09-07 15:15 | Emergency Department Note ---
Impression & Plan Chest pain, Aortic stenosis ED Provider Note NAME: KERWIN VERNON AGE: 67 SEX: F : 1955 ARRIVES VIA: Ambulance INFORMANT: Patient ED PROVIDER(S): Ketan Gramajo DO CHIEF COMPLAINT: chest pain HPI: Patient is a 67-year-old female with a past medical history of LVH, aortic stenosis, depression, hypertension, anxiety who presents to the ER for chest pain. Symptoms started around 1:15-1:30 today. She was sitting up in the chair. Radiated across from the right shoulder to the left shoulder. Describes it as an achiness. No pain going through the back or the jaws for the arms. No belly pain, nausea, vomiting, or diarrhea. No other exacerbating or remitting factors. She has never had this before. No history of any previous heart attacks. No known family coronary artery disease that she is aware of. She just had her right hip replaced by Dr. Royal on the . She is taking aspirin. No other blood thinners. Pain resolved on its own without any intervention. ROS: See above HPI for pertinent positives & negatives. A total of 10 systems reviewed and were otherwise negative. PAST MEDICAL HISTORY:See Below PAST SURGICAL HISTORY:See Below FAMILY HISTORY:See Below SOCIAL HISTORY:See Below HOME MEDICATIONS:See Below ALLERGIES:See Below VITALS:See Below PHYSICAL EXAMINATION: GENERAL: Sitting up in bed, alert, well appearing, well nourished, no distress, non-toxic EYE EXAM: normal conjunctiva. OROPHARYNX: no exudate, no erythema, lips, buccal mucosa, and tongue normal and mucous membranes are moist NECK: supple, no nuchal rigidity, no adenopathy, non-tender LUNGS: Clear to auscultation. Normal chest wall mechanics HEART: no murmurs, S1 normal and S2 normal ABDOMEN: abdomen soft, non-tender, normo-active bowel sounds, no masses, no rebound or guarding. UPPER EXTREMITIES: upper extremities are grossly normal. LOWER EXTREMITIES: Calves are equal bilateral. DPs 2 out of 4. Dressing over the right hip without any active bleeding. NEURO EXAM: Normal sensorium, cranial nerves II-XII grossly intact, normal speech, no gross weakness of arms. MEDICAL DECISION MAKING: Patient is a 67-year-old female who presents the ER for chest pain. IV was established blood work was obtained. Labs show no significant leukocytosis but a mild anemia at 9.8 down from 11. BMP with mild hypokalemia 3.4. LFTs gar[place] irubin was unremarkable. Troponin was elevated at nearly 15. Lipase was normal. COVID was negative. CT of the chest was unremarkable. EKG was nondiagnostic. Patient was updated bedside. She was given aspirin. She was given nitro for the chest pain and that resolved. She was updated bedside. Triage Nursing notes reviewed. Limited review of prior medical records performed Vital Signs: reviewed and remarkable for no significant abnormalities Differential diagnosis: Cardiac ischemia, aortic dissection, pulmonary embolism, pneumothorax, pneumonia, pericarditis, myocarditis, esophageal rupture, GERD, cholecystitis, pancreatitis, musculoskeletal, as well as other pathologies. ER treatment provided: See below Diagnostics interpreted by me: ECG: Sinus rhythm rate of 108 Normal axis No PVCs ST depressions in the inferior leads as well as V3 through V6 QTC 482 No significant change from August 23, 2022 Cardiac Monitoring: An order was placed for continuous cardiac monitoring. The monitor shows a rate of 101 with sinus rhythm. Laboratory studies: As stated above and show below. Imaging studies: CT angio chest was negative Consultation(s): Discussed with Dr. Polo Chauhan for further evaluation Procedures: none Critical Care: None Past Med/Surg History Medical History Anemia Anxiety Aortic stenosis Chronic hip pain Dental abscess Depression Dermatitis Hemorrhoids, internal Hx of venous thrombosis and embolism Hyperlipidemia Hypertension Iron deficiency anemia Mitral regurgitation Osteoarthritis Thrombophlebitis Tinnitus Vitamin B12 deficiency Vitamin D deficiency Xerosis cutis Surgical History H/O acute cholecystitis H/O gastric bypass H/O hernia repair H/O total hip arthroplasty History of colonoscopy (12/30/15) Dr. Merrill, nonbleeding internal hemorrhoids, otherwise unremarkable, recheck 10 years Family History Mother Colorectal cancer Sister Aortic valve replaced Brother Myocardial infarction Other Diabetes Nephrolithiasis Ovarian cancer Denies family history of Prostate cancer Breast cancer Social History Smoking Status: Never smoker Second Hand Exposure: No; Hx Alcohol Use: Yes Alcohol type: wine Alcohol Intake Frequency: Monthly or Less Hx Substance Use: Yes Prescribed Medications: Opiates Last Used Substance: Hours (ago) Preferred Language: Cambodian Visual Impairment: No Limitations Hearing Ability: Normal Beliefs That Will Affect Care: Synagogue Synagogue Beliefs: Baldo Witness marital status: Single Current Living Situation: Family current occupational status: retired Feels Safe at Home: Yes Childhood Exposure to Second-Hand Smoke: Yes caffeine: Yes Dental Care, Regularly: Yes Physical Activity Frequency: Does not Exercise Seatbelt Use: always Sunscreen Use: No Assistive Devices: Glasses Allergies Allergies Allergy/AdvReac Type Severity Reaction Status Date / Time IVETH Inhibitors AdvReac Intermediate cough Verified 09/07/22 17:38 lisinopril AdvReac Intermediate Cough Verified 09/07/22 17:38 Home Meds Home Medications Medication Instructions Recorded Confirmed biotin 10,000 mcg disintegrating 10,000 mcg PO DAILY 04/03/19 09/07/22 tablet cyanocobalamin (vitamin B-12) 1,000 mcg PO DAILY 09/27/19 09/07/22 1,000 mcg tablet,extended release cholecalciferol (vitamin D3) 50 50 mcg PO DAILY 02/18/22 09/07/22 mcg (2,000 unit) capsule coenzyme Q10 75 mg capsule (Ultra 75 mg PO DAILY 02/18/22 09/07/22 CoQ10) aspirin 81 mg tablet,delayed 81 mg PO BID 09/07/22 09/07/22 release diclofenac sodium 1 % topical gel 4 g topical QID PRN Pain 09/07/22 09/07/22 magnesium citrate,mag oxide 250 mg 500 mg PO DAILY 09/07/22 09/07/22 capsule Previous Rx's Medication Instructions Recorded sertraline 50 mg tablet 50 mg PO DAILY #90 tabs 08/15/22 tramadol 50 mg tablet 100 mg PO TID #180 tabs 08/15/22 atorvastatin 20 mg tablet 20 mg PO DAILY #90 tabs 09/02/22 Results & Data (ED) Vital Signs Vital Signs - 24 hr 09/07/22 14:39 09/07/22 14:56 09/07/22 15:03 Temperature 36.9 C Temperature Source Oral Pulse Rate 97 H Pulse Rate from SpO2 Sensor Pulse Rhythm Regular Respiratory Rate 20 19 Respiratory Effort / Characteristics Non-Labored Respiratory Depth Normal Respiratory Pattern Regular Blood Pressure Blood Pressure Mean Pulse Oximetry 100 Oxygen Delivery Method Room Air Room Air Sepsis Recent Fever Within 48 Hours No Sepsis New/Unexplained Change in Mental Status N/A Sepsis Action Taken by Nursing No Action Required 09/07/22 15:14 09/07/22 15:25 09/07/22 15:25 Temperature Temperature Source Pulse Rate 96 H Pulse Rate from SpO2 Sensor 95 H 100 H Pulse Rhythm Respiratory Rate 22 22 Respiratory Effort / Characteristics Respiratory Depth Respiratory Pattern Blood Pressure 146/73 H Blood Pressure Mean 97 Pulse Oximetry 98 99 Oxygen Delivery Method Sepsis Recent Fever Within 48 Hours Sepsis New/Unexplained Change in Mental Status Sepsis Action Taken by Nursing 09/07/22 15:30 09/07/22 15:30 09/07/22 16:00 Temperature Temperature Source Pulse Rate 95 H Pulse Rate from SpO2 Sensor 94 H Pulse Rhythm Respiratory Rate 16 Respiratory Effort / Characteristics Respiratory Depth Respiratory Pattern Blood Pressure 139/78 126/65 Blood Pressure Mean 98 85 Pulse Oximetry 99 Oxygen Delivery Method Sepsis Recent Fever Within 48 Hours Sepsis New/Unexplained Change in Mental Status Sepsis Action Taken by Nursing 09/07/22 16:00 09/07/22 16:30 09/07/22 16:30 Temperature Temperature Source Pulse Rate 89 86 Pulse Rate from SpO2 Sensor 88 87 Pulse Rhythm Respiratory Rate 14 14 Respiratory Effort / Characteristics Respiratory Depth Respiratory Pattern Blood Pressure 140/69 Blood Pressure Mean 92 Pulse Oximetry 99 99 Oxygen Delivery Method Sepsis Recent Fever Within 48 Hours Sepsis New/Unexplained Change in Mental Status Sepsis Action Taken by Nursing 09/07/22 16:57 09/07/22 16:57 09/07/22 17:00 Temperature Temperature Source Pulse Rate 100 H Pulse Rate from SpO2 Sensor 100 H Pulse Rhythm Respiratory Rate 16 Respiratory Effort / Characteristics Respiratory Depth Respiratory Pattern Blood Pressure 159/73 H 150/75 H Blood Pressure Mean 101 100 Pulse Oximetry 100 Oxygen Delivery Method Sepsis Recent Fever Within 48 Hours Sepsis New/Unexplained Change in Mental Status Sepsis Action Taken by Nursing 09/07/22 17:00 Temperature Temperature Source Pulse Rate 99 H Pulse Rate from SpO2 Sensor 99 H Pulse Rhythm Respiratory Rate 13 Respiratory Effort / Characteristics Respiratory Depth Respiratory Pattern Blood Pressure Blood Pressure Mean Pulse Oximetry 100 Oxygen Delivery Method Sepsis Recent Fever Within 48 Hours Sepsis New/Unexplained Change in Mental Status Sepsis Action Taken by Nursing Laboratory Data Result diagrams: 09/07/22 15:08 09/07/22 15:08 Lab Results 09/07/22 09/07/22 Range/Units 15:08 15:08 WBC 7.79 (4.8-10.8) K/ul RBC 3.40 L (3.93-5.22) M/uL Hgb 9.8 L (12.0-16.0) g/dl Hct 30.7 L (34.1-44.9) % MCV 90.3 (80.0-100.0) fL MCH 28.8 (25.0-34.0) pg MCHC 31.9 L (32.0-36.0) g/dL RDW Std Deviation 50.0 H (36.4-46.3) fL RDW Coeff of Dotty 15.0 H (11.5-14.5) % Plt Count 232 (130-400) K/uL MPV 10.4 (9.4-12.3) fL Immature Gran % (Auto) 0.4 % Neut % (Auto) 77.4 % Lymph % (Auto) 12.3 % [place] % (Auto) 9.6 % Eos % (Auto) 0.0 % Baso % (Auto) 0.3 % Neut # (Auto) 6.03 (1.4-6.5) K/uL Lymph # (Auto) 0.96 L (1.2-3.4) K/uL [place] # (Auto) 0.75 (0.24-0.82) K/uL Eos # (Auto) 0.00 (0-0.50) K/uL Baso # (Auto) 0.02 (0-0.2) K/uL Immature Gran # (Auto) 0.03 H (0.00-0.02) K/uL Sodium 138 (136-145) mmol/L Potassium 3.4 L (3.5-5.1) mmol/L Chloride 104 (98-107) mmol/L Carbon Dioxide 28 (21-32) mmol/L Anion Gap 6 (3-11) BUN 12 (6-23) mg/dl Creatinine 0.52 L (0.6-1.2) mg/dl Est Cr Clr Drug Dosing 92.7 ml/min Est GFR ( Amer) 113.8 ml/min Est GFR (Non-Af Amer) 98.2 ml/min BUN/Creatinine Ratio 23.1 H (10-20) Glucose 112 H (70-99(Fasting)) mg/dl Calcium 8.9 (8.5-10.1) mg/dl Total Bilirubin 0.6 (0.2-1.0) mg/dl AST 19 (13-39) U/L ALT 6 L (7-52) U/L Alkaline Phosphatase 73 (34-104) U/L Troponin I High Sens 14.6 H (0-14) pg/ml Total Protein 6.3 (6.0-8.3) gm/dl Albumin 3.6 (3.4-5.0) gm/dl Globulin 2.7 (2.5-4.0) gm/dl Albumin/Globulin Ratio 1.3 (0.9-2) Lipase 15 (11-82) U/L Administered Medications Tramadol HCl (Tramadol Hcl 50 Mg Tablet) 100 mg PO TID THERON Stop: 10/07/22 20:59 Last Admin: 09/07/22 21:17 Dose: 100 mg Documented By: Discontinued Medications Aspirin (Aspirin Chew 324 Mg) 324 mg PO NOW STA Stop: 09/07/22 15:16 Last Admin: 09/07/22 15:23 Dose: 324 mg Documented By: NAELD Sodium Chloride (Nss) 500 mls @ 999 mls/hr IV .Q31M ONE Stop: 09/07/22 15:45 Last Infusion: 09/07/22 16:00 Dose: 0 mls/hr Documented By: Admin: 09/07/22 15:23 Dose: 999 mls/hr Documented By: CHRISTO Ioversol (Optiray 320 500ml) 113 ml IV ONCE ONE Stop: 09/07/22 16:57 Last Admin: 09/07/22 16:57 Dose: 113 ml Documented By: DUSTIN Nitroglycerin (Nitroglycerin Sl 0.4 Mg/Tab Tab) 0.4 mg SL NOW STA Stop: 09/07/22 17:03 Last Admin: 09/07/22 17:48 Dose: 0.4 mg Documented By: CHRISTO Potassium Chloride (Potassium Chloride Crtab 20 Meq Tabcr) 40 meq PO NOW STA Stop: 09/07/22 17:25 Last Admin: 09/07/22 17:47 Dose: 40 meq Documented By: CHRISTO Imaging Data Radiologist's Impression: Chest X-Ray 09/07/22 14:56 SINGLE VIEW CHEST CLINICAL HISTORY: Atypical chest pain. FINDINGS: An AP, portable, upright chest radiograph is compared to study dated 08/23/2022. The cardiomediastinal silhouette is unremarkable. The lungs and pleural spaces are clear. No pneumothorax is seen. The skeletal structures are osteopenic. The bony thorax is grossly intact. IMPRESSION: No active disease in the chest. ACT 112: Negative or not required by law. Electronically signed by: Omer Frederick M.D. 09/07/2022 3:22 PM Chest CTA 09/07/22 15:53 CT angio chest PE protocol CLINICAL HISTORY: cp recent surg TECHNIQUE: Multidetector row helical CT of the chest was performed with angiographic protocol. Coronal and sagittal reformations were obtained. Coronal and sagittal MIPS were obtained from the axial data set and were submitted for review. Automated dose lowering techniques and/or adjustment according to patient size were utilized for this exam. CT DOSE: 430.80 mGycm Comparison: Comparison is made to chest radiograph 11/07/2021 FINDINGS: Lungs and pleura: A few calcified granulomas are seen and no suspicious pulmonary nodules. Heart and pericardium: Heart size is normal. No pericardial effusion. Vessels: No evidence of pulmonary embolism. Mediastinum and maureen: Unremarkable. Chest wall and lower neck: Unremarkable. Abdomen: Unremarkable. Bones: Degenerative changes in the thoracic spine. IMPRESSION: No evidence of pulmonary embolism. No acute abnormalities are seen. ACT 112: Negative or not required by law. Electronically signed by: Vargas Winkler M.D. 09/07/2022 5:17 PM Discharge Plan Visit Data Chief Complaint: Chest Pain Stated Complaint: CHEST PAIN, PALPITATIONS ED Provider: Ketan Gramajo Discharge Problem: Chest pain, Aortic stenosis Patient Disposition: Admitted As Inpatient Discharge Instructions Interventions: ED Discharge Assessment Last Done: 09/07/22 20:15
[2022-09-07 15:22] LABS: Basophils # (auto) 0.02 K/uL (0-0.2); Basophils % (auto) 0.3 %; Hematocrit (blood only) 30.7 % (34.1-44.9); Hemoglobin 9.8 g/dl (12.0-16.0); Immature Granulocytes # (auto) 0.03 K/uL (0.00-0.02); Immature Granulocytes % (auto) 0.4 %; Lymphocytes # (auto) 0.96 K/uL (1.2-3.4); Lymphocytes % (auto) 12.3 %; Mean Corpuscular Hemoglobin 28.8 pg (25.0-34.0); Mean Corpuscular Hgb Conc 31.9 g/dL (32.0-36.0); Mean Corpuscular Volume 90.3 fL (80.0-100.0); Mean Platelet Volume 10.4 fL (9.4-12.3); Monocytes # (auto) 0.75 K/uL (0.24-0.82); Monocytes % (auto) 9.6 %; Neutrophils # (auto) 6.03 K/uL (1.4-6.5); Neutrophils % (auto) 77.4 %; Platelet Count 232 K/uL (130-400); White Blood Count 7.79 K/ul (4.8-10.8)
--- NOTE | 2022-09-07 15:24 | XRay Report ---
SINGLE VIEW CHEST CLINICAL HISTORY: Atypical chest pain. FINDINGS: An AP, portable, upright chest radiograph is compared to study dated 08/23/2022. The cardiom ediastinal silhouette is unremarkable. The lungs and pleural spaces are clear. No pneumothorax is see n. The skeletal structures are osteopenic. The bony thorax is grossly intact. IMPRESSION: No active disease in the chest. ACT 112: Negative or not required by law. Electronically signed by: Omer rFederick M.D. 09/07/2022 3:22 PM
[2022-09-07 15:55] LABS: Albumin Globulin Ratio 1.3 (0.9-2); Albumin Level 3.6 gm/dl (3.4-5.0); BUN Creatinine Ratio 23.1 (10-20); Bilirubin,Total 0.6 mg/dl (0.2-1.0); Calcium 8.9 mg/dl (8.5-10.1); Creatinine Clr Calc Pharmacy 92.7 ml/min; Est GFR (African American) 113.8 ml/min; Est GFR (Non-African American) 98.2 ml/min; Globulin 2.7 gm/dl (2.5-4.0); Potassium 3.4 mmol/L (3.5-5.1); Total Protein 6.3 gm/dl (6.0-8.3)
[2022-09-07 15:59] LABS: Troponin I High Sensitivity 14.6 pg/ml (0-14)
[2022-09-07] MEDS ORDERED: OPTIRAY 320 500ml IV ONE (16:56)
[2022-09-07] MEDS ORDERED: NITROGLYCERIN SL 0.4 MG/TAB TAB SL STA (17:02)
--- NOTE | 2022-09-07 17:09 | History & Physical Report ---
Date of Service September 07, 2022 Assessment & Plan (1) Chest pain: Plan: - 2 separate episodes today in b/l shoulders and upper chest/collarbone region, one in ED exacerbated by raising arms above head for CT, which supports MSK etiology. Especially likely given he has been using a walker the past 2 days post op, feeling aches in upper neck/back, shoulders with use. - Trop 14.6, CT negative for PEs, EKG without any T wave or ST segment abnormalities. - Will continue asa BID for VTE ppx, trend troponin, defer echo as she recently had one 09/02 [facility] revealed severe . - Will continue home pain medications for post op pain. (2) Aortic stenosis: Plan: - Severe, echo last week as pre-op eval: severe , moderate LVH, mild MR, no wall motion abnormalities, EF 60-65% - No evidence of heart failure or volume overload, prior to surgery she was fairly ambulating well without any chets pain/palpiations/SOB, activity only limited by hip pain. - Monitor fluid status and I/Os. (3) H/O total hip arthroplasty: Plan: - POD #2, with Dr. Royal in [place]. - Continue ASA 81 BID. - PT/OT. (4) Iron deficiency anemia: Plan: - Hgb 9.8, down from baseline 11.5, no s/s acute bleed, likely a post-op finding. - Continue to monitor. (5) Hyperlipidemia: Plan: - Cotninue statin. (6) Depression: Plan: Continue Zoloft. Plan - Obs on med/tele. - SCDs, ASA 81 BID for VTE ppx. - Full Code. History of Present Illness Chief Complaint: chets pain x 1 day Primary Care Provider: Elsy Her PA-C Mabel Blevins is a 67-year-old female with past medical history significant for severe aortic stenosis, hypertension, hyperlipidemia, anemia, PE, depression and anxiety is presenting today with chest pain. She had just finished lunch she was sitting upright when she felt a pain started in her right shoulder and go directly across to the left shoulder, described as a dull ache 7/10. She did feel like her heart was racing during the event. Her home health nurse, who is coming to see her for postoperative care assessed her and felt she should present to the ED for further evaluation. Her pain did resolve prior to presentation, but she did have a recurrence of it and CT scan when she is instructed to lift her arms up overhead. This pain has resolved on its own. Since her surgery 2 days ago she has been using a walker at home and feels like she has had some neck, back, and shoulder pain from using it, she wonders if this is the cause of her pain. She did not have any associated shortness of breath, lightheadedness, dizziness, nausea, or abdominal pain with chest pain. It did not radiate below her collarbone, or into her neck, jaw, or back. Upon presentation she is mildly tachycardic with heart rate in the 90s, otherwise vital signs within normal limits and stable, she is 100% on room air. Labs remarkable for mildly elevated troponin at 14.6, potassium 3.4. Hemoglobin 9.8, down from baseline of 11.5. CXR unremarkable, chest CT ordered given recent surgery to evaluate for PE, none identified. Allergies Allergy/AdvReac Type Severity Reaction Status Date / Time IVETH Inhibitors AdvReac Intermediate cough Verified 09/07/22 17:38 lisinopril AdvReac Intermediate Cough Verified 09/07/22 17:38 Home Medications Medication Instructions Recorded Confirmed Type biotin 10,000 mcg disintegrating 10,000 mcg PO DAILY 04/03/19 09/07/22 History tablet cyanocobalamin (vitamin B-12) 1,000 mcg PO DAILY 09/27/19 09/07/22 History 1,000 mcg tablet,extended release cholecalciferol (vitamin D3) 50 50 mcg PO DAILY 02/18/22 09/07/22 History mcg (2,000 unit) capsule coenzyme Q10 75 mg capsule (Ultra 75 mg PO DAILY 02/18/22 09/07/22 History CoQ10) sertraline 50 mg tablet 50 mg PO DAILY #90 tabs 08/15/22 09/07/22 Rx tramadol 50 mg tablet 100 mg PO TID #180 tabs 08/15/22 09/07/22 Rx atorvastatin 20 mg tablet 20 mg PO DAILY #90 tabs 09/02/22 09/07/22 Rx aspirin 81 mg tablet,delayed 81 mg PO BID 09/07/22 09/07/22 History release diclofenac sodium 1 % topical gel 4 g topical QID PRN Pain 09/07/22 09/07/22 History magnesium citrate,mag oxide 250 mg 500 mg PO DAILY 09/07/22 09/07/22 History capsule Past Med/Surg History Medical History Anemia Anxiety Aortic stenosis Chronic hip pain Dental abscess Depression Dermatitis Hemorrhoids, internal Hx of venous thrombosis and embolism Hyperlipidemia Hypertension Iron deficiency anemia Mitral regurgitation Osteoarthritis Thrombophlebitis Tinnitus Vitamin B12 deficiency Vitamin D deficiency Xerosis cutis Surgical History H/O acute cholecystitis H/O gastric bypass H/O hernia repair H/O total hip arthroplasty History of colonoscopy (12/30/15) Dr. Merrill, nonbleeding internal hemorrhoids, otherwise unremarkable, recheck 10 years Family History Mother Colorectal cancer Sister Aortic valve replaced Brother Myocardial infarction Other Diabetes Nephrolithiasis Ovarian cancer Denies family history of Prostate cancer Breast cancer Social History Smoking Status: Never smoker Second Hand Exposure: No; Hx Alcohol Use: Yes Alcohol type: wine Alcohol Intake Frequency: Monthly or Less Hx Substance Use: Yes Prescribed Medications: Opiates Last Used Substance: Hours (ago) Preferred Language: Maltese Visual Impairment: No Limitations Hearing Ability: Normal Beliefs That Will Affect Care: Baptism Baptism Beliefs: Jevhovah Witness marital status: Single Current Living Situation: Family current occupational status: retired Feels Safe at Home: Yes Childhood Exposure to Second-Hand Smoke: Yes caffeine: Yes Dental Care, Regularly: Yes Physical Activity Frequency: Does not Exercise Seatbelt Use: always Sunscreen Use: No Assistive Devices: Glasses Review of Systems Review of Systems: Constitutional: No fever/chills, weakness, fatigue, myalgias, anorexia, night sweats Eyes: No diplopia, no worsening or blurred vision ENT: normal hearing, no trouble swallowing Respiratory: No cough, sputum, dyspnea at rest or on exertion Cardiovascular: 30 minutes of b/l shoulder and upper chest pain with palpitations which self resolved, recurrence in ED again self resolved Abdomen: No pain, nausea, vomiting, diarrhea or constipation : Denies dysuria, hematuria, increased urgency/frequency, urinary retention Musculoskeletal: No joint pain, calf pain, swelling Neurologic: No weakness, numbness/tingling, or balance problems Psychiatric: No anxiety or depression Skin: No rash or itch Physical Exam Physical Exam: General: awake, alert, no apparent distress Head: Normocephalic, atraumatic ENT: PERRL, EOMI, no pharyngeal exudate, mucous membranes moist Chest: Clear to auscultation, on room air, no adventitious breath sounds Cardiac: Regular rate and rhythm, no murmur, no JVD, normal peripheral pulses, good capillary refill Abdominal: NABS x 4 quadrants, soft, nontender to palpation, no rebound, guarding or tenderness Extremities: Normal inspection, no peripheral edema or erythema, calfs nontender to palpation Psych: Normal mood and affect Neuro: AAO x 3, strength intact bilaterally and rated 5/5, no motor deficits, speech is clear, no peripheral sensory deficits Skin: no rash or erythema Results & Data Results & Data ([facility]) Vital Signs (Past 12 Hours) Vital Signs Temp Pulse Resp BP Pulse Ox O2 Del Method 09/07/22 15:30 95 H 16 99 09/07/22 15:30 139/78 09/07/22 15:25 146/73 H 09/07/22 15:25 22 99 09/07/22 15:14 96 H 22 98 09/07/22 15:03 Room Air 09/07/22 14:56 97 H 19 100 Room Air 09/07/22 14:39 36.9 C 20 Laboratory Results Abnormal lab results 09/07/22 09/07/22 Range/Units 15:08 15:08 RBC 3.40 L (3.93-5.22) M/uL Hgb 9.8 L (12.0-16.0) g/dl Hct 30.7 L (34.1-44.9) % MCHC 31.9 L (32.0-36.0) g/dL RDW Std Deviation 50.0 H (36.4-46.3) fL RDW Coeff of Dotty 15.0 H (11.5-14.5) % Lymph # (Auto) 0.96 L (1.2-3.4) K/uL Immature Gran # (Auto) 0.03 H (0.00-0.02) K/uL Potassium 3.4 L (3.5-5.1) mmol/L Creatinine 0.52 L (0.6-1.2) mg/dl BUN/Creatinine Ratio 23.1 H (10-20) Glucose 112 H (70-99(Fasting)) mg/dl ALT 6 L (7-52) U/L Troponin I High Sens 14.6 H (0-14) pg/ml Diagnostic Findings Chest X-Ray 09/07/22 14:56 SINGLE VIEW CHEST CLINICAL HISTORY: Atypical chest pain. FINDINGS: An AP, portable, upright chest radiograph is compared to study dated 08/23/2022. The cardiomediastinal silhouette is unremarkable. The lungs and pleural spaces are clear. No pneumothorax is seen. The skeletal structures are osteopenic. The bony thorax is grossly intact. IMPRESSION: No active disease in the chest. ACT 112: Negative or not required by law. Electronically signed by: Omer Frederick M.D. 09/07/2022 3:22 PM ECG Additional Comments: Sinus tachycardia Nonspecific ST and T wave abnormality Abnormal ECG When compared with ECG of 23-AUG-2022 13:37, Vent. rate has increased BY 46 BPM Nonspecific T wave abnormality, worse in Inferior leads Nonspecific T wave abnormality, worse in Lateral leads. Code Status & VTE Plan Code Status Full Code. Supervising Physician Co-Signing Physician Notes Patient was seen and examined independently I discussed the case with Zarina WOMACK I reviewed pertinent past medical social family history and also the plan of care and agree with the plan of care. Patient recent underwent revision of the hip replacement on September 05. She presented with chest pain. She has a mildly elevated troponin. CT angiography is negative. In her preop assessment she was sent to cardiology due to severe aortic stenosis however at this point time she is not in any heart failure nor does she describe classic angina as her chest pain is mostly positional and it was worsened with moving her arms above her head for CTA. Subsequently we will have her observed in our facility check serial troponins and if elevated will repeat echo but at this time we will not. We will watch the patient cautiously for exacerbations or aortic stenosis and recommend outpatient follow-up with cardiology as she typically does not have a defined recurrent relationship with them Her examination was very benign she does have mild reproducibility of her chest discomfort but her card exam is regular with a shrill systolic ejection murmur at the right upper sternal border lungs were clear her right hip has tender in the anterior compartment of her right side where she had her surgery but she has good distal strength and sensation and no venous cords or edema Any exceptions will be noted below PG Care Time/CCT Total # of Minutes Spent Total Time Spent with Patient: Total time spent is greater than 50% in coordination of care (as documented) at patient's floor/unit and/or counseling patient: Coding Level of Care Code INT OBSERVATION CARE 70M LVL 3 Diagnoses Chest pain R07.9 Aortic stenosis I35.0 H/O total hip arthroplasty Z96.649 Iron deficiency anemia D50.9 Hyperlipidemia E78.5 Hyperlipidemia type: unspecified Depression F32.9 (1) Hyperlipidemia Hyperlipidemia type: unspecified Qualified Code(s): E78.5 - Hyperlipidemia, unspecified
--- NOTE | 2022-09-07 17:19 | CT Scan Report ---
CT angio chest PE protocol CLINICAL HISTORY: cp recent surg TECHNIQUE: Multidetector row helical CT of the chest was performed with angiographic protocol. Bass l and sagittal reformations were obtained. Coronal and sagittal MIPS were obtained from the axial yodit a set and were submitted for review. Automated dose lowering techniques and/or adjustment according to patient size were utilized for this exam. CT DOSE: 430.80 mGycm Comparison: Comparison is made to chest radiograph 11/07/2021 FINDINGS: Lungs and pleura: A few calcified granulomas are seen and no suspicious pulmonary nodules. Heart and pericardium: Heart size is normal. No pericardial effusion. Vessels: No evidence of pulmonary embolism. Mediastinum and maureen: Unremarkable. Chest wall and lower neck: Unremarkable. Abdomen: Unremarkable. Bones: Degenerative changes in the thoracic spine. IMPRESSION: No evidence of pulmonary embolism. No acute abnormalities are seen. ACT 112: Negative or not required by law. Electronically signed by: Vargas Winkler M.D. 09/07/2022 5:17 PM
[2022-09-07] MEDS ORDERED: POTASSIUM CHLORIDE CRTAB 20 MEQ TABCR PO STA (17:24)
[2022-09-07] MEDS ORDERED: ALUMINUM/MAGNESIUM SUSP 30 ML UDC PO PRN (20:35)
[2022-09-07] MEDS ORDERED: ACETAMINOPHEN 325 MG TAB PO PRN (20:35)
[2022-09-07] MEDS: traMADol HCL 50 MG TABLET PO SCH (21:17)
[2022-09-07] MEDS: ASPIRIN 81 MG ECTAB PO SCH (21:34)
[2022-09-07] MEDS: NITROGLYCERIN 2% EXT SCH (23:55)
[2022-09-07] MEDS: [UNRECOGNIZED DRUG - OTHER] EXT SCH (23:55)
[2022-09-08] MEDS ORDERED: HYDROmorphone INJ 0.5 MG/0.5 ML SYR IV STA (04:15)
[2022-09-08] MEDS: [UNRECOGNIZED DRUG - OTHER] EXT SCH ×2 (05:08→13:18)
[2022-09-08] MEDS: NITROGLYCERIN 2% EXT SCH ×2 (05:08→13:18)
--- NOTE | 2022-09-08 07:27 | Electrocardiogram Report ---
Test Reason : Blood Pressure : / mmHG Vent. Rate : 108 BPM Atrial Rate : 108 BPM P-R Int : 158 ms QRS Dur : 080 ms QT Int : 360 ms P-R-T Axes : 060 009 076 degrees QTc Int : 482 ms Sinus tachycardia Nonspecific ST and T wave abnormality Abnormal ECG When compared with ECG of 23-AUG-2022 13:37, Vent. rate has increased BY 46 BPM Nonspecific T wave abnormality, worse in Inferior leads Nonspecific T wave abnormality, worse in Lateral leads Confirmed by Fitz Lugo ([id number]) on 09/08/2022 7:27:08 AM Referred By: REFERRED SELF Confirmed By:Fitz Lugo
[2022-09-08] MEDS: ASPIRIN 81 MG ECTAB PO SCH (09:00)
[2022-09-08] MEDS ORDERED: NON-FORMULARY MEDICATION (Coenzyme Q10 [Ultra Coq10] 75 mg capsule) PO SCH (09:00)
[2022-09-08] MEDS ORDERED: [UNRECOGNIZED DRUG - OTHER] PO SCH (09:00)
[2022-09-08] MEDS ORDERED: MAGNESIUM OXIDE 400 MG TAB PO SCH (09:00)
[2022-09-08] MEDS ORDERED: ATORVASTATIN 20 MG TAB PO SCH (09:00)
[2022-09-08] MEDS ORDERED: CYANOCOBALAMIN (B-12) 500 MCG TABLET PO SCH (09:00)
[2022-09-08] MEDS ORDERED: BIOTIN 10000 MCG PO SCH (09:00)
[2022-09-08] MEDS ORDERED: CHOLECALCIFEROL 1,000 UNITS 25 MCG TAB PO SCH (09:00)
[2022-09-08] MEDS ORDERED: SERTRALINE HCL 50 MG TABLET PO SCH (09:00)
[2022-09-08] MEDS: traMADol HCL 50 MG TABLET PO SCH (09:07)
--- NOTE | 2022-09-08 10:30 | Electrocardiogram Report ---
Test Reason : Blood Pressure : / mmHG Vent. Rate : 075 BPM Atrial Rate : 075 BPM P-R Int : 152 ms QRS Dur : 086 ms QT Int : 396 ms P-R-T Axes : 048 002 034 degrees QTc Int : 442 ms Normal sinus rhythm Minimal voltage criteria for LVH, may be normal variant Borderline ECG When compared with ECG of 07-SEP-2022 15:04, Nonspecific T wave abnormality, improved in Inferior leads Nonspecific T wave abnormality no longer evident in Lateral leads Confirmed by Burke Buck ([id number]) on 09/08/2022 10:30:31 AM Referred By: REFERRED SELF Confirmed By:Burke Buck
--- NOTE | 2022-09-08 13:26 | Discharge Summary ---
Date of Service September 08, 2022 Admission HPI Per Admitting Provider Mabel Blevins is a 67-year-old female with past medical history significant for severe aortic stenosis, hypertension, hyperlipidemia, anemia, PE, depression and anxiety is presenting today with chest pain. She had just finished lunch she was sitting upright when she felt a pain started in her right shoulder and go directly across to the left shoulder, described as a dull ache 7/10. She did feel like her heart was racing during the event. Her home health nurse, who is coming to see her for postoperative care assessed her and felt she should present to the ED for further evaluation. Her pain did resolve prior to presentation, but she did have a recurrence of it and CT scan when she is instructed to lift her arms up overhead. This pain has resolved on its own. Since her surgery 2 days ago she has been using a walker at home and feels like she has had some neck, back, and shoulder pain from using it, she wonders if this is the cause of her pain. She did not have any associated shortness of breath, lightheadedness, dizziness, nausea, or abdominal pain with chest pain. It did not radiate below her collarbone, or into her neck, jaw, or back. Upon presentation she is mildly tachycardic with heart rate in the 90s, otherwise vital signs within normal limits and stable, she is 100% on room air. Labs remarkable for mildly elevated troponin at 14.6, potassium 3.4. Hemoglobin 9.8, down from baseline of 11.5. CXR unremarkable, chest CT ordered given recent surgery to evaluate for PE, none identified. Principal Diagnosis musculoskeletal chest pain Discharge Exam The patient is awake, alert and oriented 3, well developed and well nourished, normocephalic and atraumatic, lying in bed and in no acute distress. HEENT--PERRL, EOMI, mucous membranes and oropharynx mildly dry Neck--supple. No JVD. No bruits. Thyroid normal, trachea midline, no adenopathy. Heart--normal S1 and S2. No murmurs, rubs or gallops. Lungs--clear bilaterally, no respiratory distress, no accessory muscle use. Abdomen--normal bowel sounds and soft. Mild epigastric and left sided abdominal pain Extremities--no cyanosis or clubbing. No edema. Dermatologic--normal skin turgor, normal color, no abnormal lymph nodes, no rash. Neurologic--cranial nerves II through XII grossly intact. Rheumatologic--normal range of motion. Psychiatric--normal affect. Discharge Data Allergies Allergy/AdvReac Type Severity Reaction Status Date / Time IVETH Inhibitors AdvReac Intermediate cough Verified 09/07/22 17:38 lisinopril AdvReac Intermediate Cough Verified 09/07/22 17:38 Consultations 09/07/22 16:22 ED Decision to Admit Stat Ordered Studies 09/07/22 15:53 CT angio chest PE protocol Stat Hospital Course (1) Chest pain: - 2 separate episodes today in b/l shoulders and upper chest/collarbone region, one in ED exacerbated by raising arms above head for CT, which supports MSK etiology. Especially likely given he has been using a walker the past 2 days post op, feeling aches in upper neck/back, shoulders with use. - Trop 14.6, CT negative for PEs, EKG without any T wave or ST segment abnormalities. - Will continue asa BID for VTE ppx, trend troponin, defer echo as she recently had one 09/02 [facility] revealed severe . -Pain is now resolved, was most likley musculoskeletal in nature -Patient expressed a willingness to be discharged - Will continue home pain medications for post op pain. (2) Aortic stenosis: - Severe, echo last week as pre-op eval: severe , moderate LVH, mild MR, no wall motion abnormalities, EF 60-65% - No evidence of heart failure or volume overload, prior to surgery she was fairly ambulating well without any chets pain/palpiations/SOB, activity only limited by hip pain. - Monitor fluid status and I/Os. (3) H/O total hip arthroplasty: - POD #3, with Dr. Royal in [place]. - Continue ASA 81 BID. - PT/OT. (4) Iron deficiency anemia: - Hgb 9.8, down from baseline 11.5, no s/s acute bleed, likely a post-op finding. - Continue to monitor. (5) Hyperlipidemia: - Cotninue statin. (6) Depression: Continue Zoloft. 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 cholecalciferol (vitamin D3) 50 mcg (2,000 unit) capsule 50 mcg PO DAILY Ultra CoQ10 75 mg capsule 75 mg PO DAILY biotin 10,000 mcg tablet,disintegrating 10,000 mcg PO DAILY aspirin 81 mg Tablet,Delayed Release (Dr/Ec) 81 mg PO BID magnesium citrate,mag oxide 250 mg Capsule 500 mg PO DAILY diclofenac sodium 1 % gel 4 g TOP QID PRN (Reason: Pain) Rx Instructions: Apply 4 GM to affected area 4 times daily. DO NOT apply more than 16 GM daily. Discharge Orders: Discharge Order (Routine); Ordered 09/08/22 Ordered By: Himanshu Osborne Admission Data Admit Date/Time: 09/07/22 17:24 Attending Provider: Himanshu Osborne Admit Provider: Polo Perez Primary Care Provider: Elsy Her Other Providers: Polo Perez Other Interventions: Discharge Summary Assessment (RN) Last Done: 09/08/22 12:16 Coding Level of Care Code D/C DAY MANAGEMENT >30 MINS Diagnoses Chest pain R07.9 Aortic stenosis I35.0 H/O total hip arthroplasty Z96.649 Iron deficiency anemia D50.9 Hyperlipidemia E78.5 Hyperlipidemia type: unspecified Depression F32.9 Time Spent (min) 35
== END 2022-09-08 13:35 | disposition home or self-care (01) ==
LOC: ED 14:55 → 2N 14:55 → SUATTDRO 17:24 → 2N 20:15

== ENCOUNTER 2023-05-27 19:07 | Observation (INO) ==
[2023-05-27] MEDS ORDERED: ONDANSETRON INJ 2 MG/ML 2 ML VIAL IV STA (20:20)
[2023-05-27] MEDS ORDERED: PANTOprazole 80 MG in DEXTROSE 5% 100 ML IV STA (20:20)
[2023-05-27] MEDS ORDERED: SODIUM CHLORIDE 0.9% 1000ML 1,000 ML IV STA (20:20)
[2023-05-27] MEDS ORDERED: MoRPHine SULFATE 4 MG/ML 1 ML CARP\\VIAL IV STA (20:20)
[2023-05-27 21:17] LABS: Anion Gap 8 (3-11); BUN Creatinine Ratio 30.8 (10-20); Blood Urea Nitrogen 16 mg/dl (6-23); Calcium 8.8 mg/dl (8.6-10.3); Carbon Dioxide 25 mmol/L (21-32); Chloride 103 mmol/L (98-107); Est GFR (African American) 113.8 ml/min; Est GFR (Non-African American) 98.2 ml/min; Glucose 126 mg/dl (70-99(Fasting)); Potassium 3.6 mmol/L (3.5-5.1); Sodium 136 mmol/L (136-145)
[2023-05-27 21:23] LABS: Troponin I High Sensitivity 13.2 pg/ml (0-14)
[2023-05-27 21:30] LABS: Hematocrit (blood only) 33.1 % (37.0-47.0); Hemoglobin 10.6 g/dl (12.0-16.0); Mean Corpuscular Volume 87.3 fL (80.0-100.0); Mean Platelet Volume 10.8 fL (9.4-12.4); Platelet Count 214 K/uL (130-400); RDW Coefficient of Variation 15.9 % (11.5-14.5); RDW Standard Deviation 51.2 fL (36.4-46.3); Red Blood Count 3.79 M/uL (4.20-5.40); White Blood Count 2.74 K/ul (4.8-10.8)
[2023-05-27] MEDS ORDERED: OPTIRAY 320 100ml IV ONE (21:31)
[2023-05-27 21:48] LABS: Alanine Aminotransferase 560 U/L (7-52); Albumin Globulin Ratio 1.5 (0.9-2); Albumin Level 3.8 gm/dl (3.4-5.0); Alkaline Phosphatase 325 U/L (34-104); Aspartate Aminotransferase 1577 U/L (13-39); Bilirubin,Total 1.7 mg/dl (0.2-1.0); Globulin 2.6 gm/dl (2.5-4.0); Lipase 27 U/L (11-82); Total Protein 6.4 gm/dl (6.0-8.3)
[2023-05-27] MEDS ORDERED: PIPERACILLIN/TAZOBACTAM 4.5 GM/120 ML BAG IV ONE (21:53)
[2023-05-27 21:56] LABS: Basophils # (auto) 0.01 K/uL (0-0.2); Basophils % (auto) 0.4 %; Lymphocytes # (auto) 0.08 K/uL (1.2-3.4); Lymphocytes % (auto) 2.9 %; Monocytes # (auto) 0.04 K/uL (0.11-0.59); Monocytes % (auto) 1.5 %; Neutrophils # (auto) 2.61 K/uL (1.40-6.50); Neutrophils % (auto) 95.2 %
--- NOTE | 2023-05-27 22:04 | CT Scan Report ---
Exam(s): CT ABDOMEN + PELVIS With Contrast IV Amt: 95 ml optiray 320 EXAM: CT Abdomen and Pelvis With Intravenous Contrast CLINICAL HISTORY: Reason for exam: remote gastric bypass, epigastric pain. TECHNIQUE: Axial computed tomography images of the abdomen and pelvis with intravenous contrast. CTDI is 14.97 mGy and DLP is 648.18 mGy-cm. Automated exposure control was utilized for the study. A dose lowering technique was utilized adhering to the principles of ALARA. CONTRAST: Patient received 95 ml optiray 320 of IV contrast COMPARISON: 03/27/2017 FINDINGS: Lung bases: Unremarkable. No mass. No consolidation. ABDOMEN: Liver: Mild intrahepatic biliary ductal dilatation within normal limits for patient clinical history. Gallbladder and bile ducts: Postoperative changes prior cholecystectomy. Pancreas: Unremarkable. No mass. No ductal dilation. Spleen: Unremarkable. No splenomegaly. Adrenals: Unremarkable. No mass. Kidneys and ureters: Unremarkable. No solid mass. No hydronephrosis. Stomach and bowel: Postoperative changes of the stomach. Nonobstructing intussusception and a short segment of colon about the anastomotic suture line in the left lower quadrant. This is best appreciated on coronal image 52 series 300.. No mucosal thickening. PELVIS: Appendix: No findings to suggest acute appendicitis. Bladder: Unremarkable. No mass. Reproductive: Unremarkable as visualized. ABDOMEN and PELVIS: Intraperitoneal space: Unremarkable. No free air. No significant fluid collection. Bones/joints: Bilateral hip arthroplasties limits evaluation of the pelvis. No acute fracture. No dislocation. Soft tissues: Unremarkable. Vasculature: Unremarkable. No abdominal aortic aneurysm. Lymph nodes: Unremarkable. No enlarged lymph nodes. IMPRESSION: 1. Intussusception within the left lower quadrant. No obstruction present 2. Postoperative changes prior cholecystectomy Electronically signed by: Ketan Mensah MD 05/27/23 22:03 PM
--- NOTE | 2023-05-28 00:13 | History & Physical Report ---
Date of Service May 28, 2023 Assessment & Plan (1) Abnormal LFTs: Plan: 67yo female presenting with ongoing abdominal pain. Found to have elevation of liver studies - mixed HC and obstructive pattern. Afebrile, non-toxic in appearance. Patient is s/p cholecystectomy -Admit to medical with telemetry -Keep NPO -Check Ferritin, Acetaminophen level and acute hepatitis panel -Check MRCP -Repeat LFTs in AM -GI Consultation appreciated -Zofran PRN nausea -Morphine PRN pain -Zosyn 4.5gm IV q 8 hours (2) GERD (gastroesophageal reflux disease): Plan: Chronic. Stable -Protonix 40mg IV daily F/E/N - heplock. Electrolytes WNL. NPO for now Ppx -SCDs Code - DNR/DNI per discussion with patient Dispo -Admit to medical with telemetry History of Present Illness Chief Complaint: abdominal pain Primary Care Provider: Elsy Her PA-C Mabel Blevins is a 67yo female with history of aortic stenosis, HTN, HLP and GERD presenting with epigastric abdominal pain. Patient has been experiencing intermittent epigastric pain for the last month. Her pain would come at random and last approximately 20-30 minutes then resolve on its own. Over the last several days she has been experiencing more episodes of epigastric pain, increased duration and severity. Today around 13:30 patient developed severe epigastric pain that has persisted. The pain is 10/10 in severity and gnawing. She had her gallbladder removed but states that this pain feels similar to her prior gallstone attacks. Patient had some chills today but otherwise denies fever, vomiting, diarrhea. She had some nausea this evening with her severe pain. No chest pain, cough or shortness of breath In the ER she is afebrile, HD stable and NAD Allergies Allergy/AdvReac Type Severity Reaction Status Date / Time IVETH Inhibitors AdvReac Intermediate cough Verified 05/27/23 21:57 lisinopril AdvReac Intermediate Cough Verified 05/27/23 21:57 Home Medications Medication Instructions Recorded Confirmed Type biotin 10,000 mcg disintegrating 10,000 mcg PO DAILY 04/03/19 05/27/23 History tablet cyanocobalamin (vitamin B-12) 1,000 mcg PO DAILY 09/27/19 05/27/23 History 1,000 mcg tablet,extended release cholecalciferol (vitamin D3) 50 50 mcg PO DAILY 02/18/22 05/27/23 History mcg (2,000 unit) capsule coenzyme Q10 75 mg capsule (Ultra 75 mg PO DAILY 02/18/22 05/27/23 History CoQ10) magnesium citrate,mag oxide 250 mg 500 mg PO DAILY 09/07/22 05/27/23 History capsule sertraline 100 mg tablet 100 mg PO DAILY #90 tabs 09/23/22 05/27/23 Rx amoxicillin 500 mg capsule 2,000 mg PO DIRECTED 02/20/23 05/27/23 History aspirin 81 mg tablet,delayed 81 mg PO ONCE PRN palpitations #30 02/20/23 05/27/23 Rx release tabs diclofenac sodium 1 % topical gel 4 g topical QID PRN Pain #100 grams 03/14/23 05/27/23 Rx omeprazole 40 mg capsule,delayed 40 mg PO DAILY #90 caps 03/31/23 05/27/23 Rx release tramadol 50 mg tablet 100 mg PO TID #180 tabs 05/19/23 05/27/23 Rx Past Med/Surg History Medical History Anemia Anxiety Aortic stenosis Chronic hip pain Dental abscess Depression Dermatitis GERD (gastroesophageal reflux disease) Hemorrhoids, internal Hx of venous thrombosis and embolism Hyperlipidemia Hypertension Iron deficiency anemia Mitral regurgitation Osteoarthritis Thrombophlebitis Tinnitus Vitamin B12 deficiency Vitamin D deficiency Xerosis cutis Surgical History H/O acute cholecystitis H/O gastric bypass H/O hernia repair H/O total hip arthroplasty History of colonoscopy (12/30/15) Dr. 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 Beliefs That Will Affect Care: Religion Religion Beliefs: No blood products marital status: Single Current Living Situation: Alone and Family current occupational status: retired Other Information That Helps Us Care for You: No Feels Safe at Home: Yes Safety Concerns: Feels Safe At This Time Childhood Exposure to Second-Hand Smoke: Yes caffeine: Yes Dental Care, Regularly: Yes Physical Activity Frequency: Does not Exercise Seatbelt Use: always Sunscreen Use: No Assistive Devices: Glasses Review of Systems Review of Systems: All systems reviewed & are unremarkable except as noted in HPI & below Physical Exam Physical Exam: General: patient resting comfortably, NAD, non-toxic in appearance, AA&O x 4 Skin: warm, dry, intact, no rashes or lesions HEENT: NC/AT, PERRL, EOMI, anicteric sclera, conjunctiva without injection, ext ernal ear normal to inspection and nontender, nares patent, moist mucus membranes, dentition intact, no oropharyngeal lesions, neck supple, trachea midline, no LAD, no thyromegaly, no JVD Heart: +S1/S2, regular, 4/6 CURLY across precordium with radiation to bilateral carotids Lungs: equal air entry bilaterally, no rales/rhonchi/wheezes Abd: +BS, soft, ND, tenderness in the RUQ and epigastric areas with voluntary guarding, no masses/organomegaly/ascites Ext: warm, 2+ pulses in UE/LE bilaterally, no clubbing/cyanosis or edema Neuro: nonfocal, patient AA&O x 4, speech intact, no facial droop, moving all extremities on command with equal strength 5/5 Results & Data Results & Data Vital Signs (Past 12 Hours) Vital Signs Temp Pulse Pulse Resp BP BP Pulse Ox 05/27/23 22:52 95 05/27/23 22:51 95 H 19 134/68 05/27/23 22:30 134/68 05/27/23 22:02 158/64 H 95 05/27/23 21:00 93 H 16 147/74 H 95 05/27/23 20:30 80 18 157/70 H 96 05/27/23 20:00 85 19 158/69 H 97 05/27/23 19:35 91 H 05/27/23 19:08 37 C 92 H 19 178/80 H 100 O2 Del Method 05/27/23 22:52 Room Air 05/27/23 22:51 Room Air 05/27/23 22:30 05/27/23 22:02 Room Air 05/27/23 21:00 Room Air 05/27/23 20:30 Room Air 05/27/23 20:00 Room Air 05/27/23 19:35 05/27/23 19:08 Room Air Laboratory Results Laboratory Results WBC 2.74 K/ul (4.8-10.8) L 05/27/23 20:45 RBC 3.79 M/uL (4.20-5.40) L 05/27/23 20:45 Hgb 10.6 g/dl (12.0-16.0) L 05/27/23 20:45 Hct 33.1 % (37.0-47.0) L 05/27/23 20:45 MCV 87.3 fL (80.0-100.0) 05/27/23 20:45 MCH 28.0 pg (25.0-34.0) 05/27/23 20:45 MCHC 32.0 g/dL (32.0-36.0) 05/27/23 20:45 RDW Std Deviation 51.2 fL (36.4-46.3) H 05/27/23 20:45 RDW Coeff of Dotty 15.9 % (11.5-14.5) H 05/27/23 20:45 Plt Count 214 K/uL (130-400) 05/27/23 20:45 MPV 10.8 fL (9.4-12.4) 05/27/23 20:45 Immature Gran % (Auto) 0.0 % 05/27/23 20:45 Neut % (Auto) 95.2 % 05/27/23 20:45 Lymph % (Auto) 2.9 % 05/27/23 20:45 Divide % (Auto) 1.5 % 05/27/23 20:45 Eos % (Auto) 0.0 % 05/27/23 20:45 Baso % (Auto) 0.4 % 05/27/23 20:45 Neut # (Auto) 2.61 K/uL (1.40-6.50) 05/27/23 20:45 Lymph # (Auto) 0.08 K/uL (1.2-3.4) L 05/27/23 20:45 Divide # (Auto) 0.04 K/uL (0.11-0.59) L 05/27/23 20:45 Eos # (Auto) 0.00 K/uL (0-0.50) 05/27/23 20:45 Baso # (Auto) 0.01 K/uL (0-0.2) 05/27/23 20:45 Immature Gran # (Auto) 0.00 K/uL (0.01-0.20) L 05/27/23 20:45 PT 10.9 Seconds (9.0-12.0) 05/27/23 20:45 INR 1.0 (0.9-1.1) 05/27/23 20:45 Sodium 136 mmol/L (136-145) 05/27/23 20:45 Potassium 3.6 mmol/L (3.5-5.1) 05/27/23 20:45 Chloride 103 mmol/L (98-107) 05/27/23 20:45 Carbon Dioxide 25 mmol/L (21-32) 05/27/23 20:45 Anion Gap 8 (3-11) 05/27/23 20:45 BUN 16 mg/dl (6-23) 05/27/23 20:45 Creatinine 0.52 mg/dl (0.6-1.2) L 05/27/23 20:45 Est Cr Clr Drug Dosing Not Reportable 05/27/23 20:45 Est GFR ( Amer) 113.8 ml/min 05/27/23 20:45 Est GFR (Non-Af Amer) 98.2 ml/min 05/27/23 20:45 BUN/Creatinine Ratio 30.8 (10-20) H 05/27/23 20:45 Glucose 126 mg/dl (70-99(Fasting)) H 05/27/23 20:45 Calcium 8.8 mg/dl (8.6-10.3) 05/27/23 20:45 Magnesium 1.7 mg/dl (1.7-2.4) 05/27/23 20:45 Ferritin 46.7 ng/ml (8-388) 05/27/23 20:45 Total Bilirubin 1.7 mg/dl (0.2-1.0) H 05/27/23 20:45 AST 1577 U/L (13-39) H 05/27/23 20:45 ALT 560 U/L (7-52) H 05/27/23 20:45 Alkaline Phosphatase 325 U/L (34-104) H 05/27/23 20:45 Troponin I High Sens 13.2 pg/ml (0-14) 05/27/23 20:45 Total Protein 6.4 gm/dl (6.0-8.3) 05/27/23 20:45 Albumin 3.8 gm/dl (3.4-5.0) 05/27/23 20:45 Globulin 2.6 gm/dl (2.5-4.0) 05/27/23 20:45 Albumin/Globulin Ratio 1.5 (0.9-2) 05/27/23 20:45 Lipase 27 U/L (11-82) 05/27/23 20:45 Urine Color Dark Yellow 05/28/23 Unknown Urine Appearance Clear (Clear) 05/28/23 Unknown Urine pH 5.5 (4.5-7.5) 05/28/23 Unknown Ur Specific [place] > 1.045 (1.000-1.030) H 05/28/23 Unknown Urine Protein Negative (Negative) 05/28/23 Unknown Urine Glucose (UA) Negative (Negative) 05/28/23 Unknown Urine Ketones Negative (Negative) 05/28/23 Unknown Urine Blood 2+ (Negative) H 05/28/23 Unknown Urine Nitrite Negative (Negative) 05/28/23 Unknown Urine Bilirubin Negative (Negative) 05/28/23 Unknown Urine Urobilinogen Negative (Negative) 05/28/23 Unknown Ur Leukocyte Esterase Negative (Negative) 05/28/23 Unknown Urine WBC (Auto) 1-5 /hpf (0-5) 05/28/23 Unknown Urine RBC (Auto) 10-30 /hpf (0-4) H 05/28/23 Unknown U Hyaline Cast (Auto) 0 /lpf (0-5) 05/28/23 Unknown U Epithel Cells (Auto) 0-5 /lpf (0-5) 05/28/23 Unknown Urine Bacteria (Auto) Negative (Negative) 05/28/23 Unknown Impressions Abdomen/Pelvis CT 05/27/23 20:20 Exam(s): CT ABDOMEN + PELVIS With Contrast IV Amt: 95 ml optiray 320 EXAM: CT Abdomen and Pelvis With Intravenous Contrast CLINICAL HISTORY: Reason for exam: remote gastric bypass, epigastric pain. TECHNIQUE: Axial computed tomography images of the abdomen and pelvis with intravenous contrast. CTDI is 14.97 mGy and DLP is 648.18 mGy-cm. Automated exposure control was utilized for the study. A dose lowering technique was utilized adhering to the principles of ALARA. CONTRAST: Patient received 95 ml optiray 320 of IV contrast COMPARISON: 03/27/2017 FINDINGS: Lung bases: Unremarkable. No mass. No consolidation. ABDOMEN: Liver: Mild intrahepatic biliary ductal dilatation within normal limits for patient clinical history. Gallbladder and bile ducts: Postoperative changes prior cholecystectomy. Pancreas: Unremarkable. No mass. No ductal dilation. Spleen: Unremarkable. No splenomegaly. Adrenals: Unremarkable. No mass. Kidneys and ureters: Unremarkable. No solid mass. No hydronephrosis. Stomach and bowel: Postoperative changes of the stomach. Nonobstructing intussusception and a short segment of colon about the anastomotic suture line in the left lower quadrant. This is best appreciated on coronal image 52 series 300.. No mucosal thickening. PELVIS: Appendix: No findings to suggest acute appendicitis. Bladder: Unremarkable. No mass. Reproductive: Unremarkable as visualized. ABDOMEN and PELVIS: Intraperitoneal space: Unremarkable. No free air. No significant fluid collection. Bones/joints: Bilateral hip arthroplasties limits evaluation of the pelvis. No acute fracture. No dislocation. Soft tissues: Unremarkable. Vasculature: Unremarkable. No abdominal aortic aneurysm. Lymph nodes: Unremarkable. No enlarged lymph nodes. IMPRESSION: 1. Intussusception within the left lower quadrant. No obstruction present 2. Postoperative changes prior cholecystectomy Electronically signed by: Ketan Mensah MD 05/27/23 22:03 PM Abdomen Ultrasound 05/27/23 22:30 Exam(s): US ABDOMEN LIMITED EXAM: US Abdomen Limited, Right Upper Quadrant CLINICAL HISTORY: Reason for exam: s/p narinder, elevated LFT and bili.. TECHNIQUE: Real-time ultrasound of the right upper quadrant with image documentation. COMPARISON: CT performed earlier on the same date. FINDINGS: Liver: Hepatomegaly. Liver is of diffusely heterogeneous echotexture. No intrahepatic bile duct dilation. Gallbladder: Gallbladder is surgically absent. Common bile duct: Unremarkable as visualized. No stones. No dilation. Pancreas: Unremarkable as visualized. Right kidney: Unremarkable. No stones. No solid mass. No hydronephrosis. IMPRESSION: 1. Hepatomegaly 2. Fatty infiltration of the liver. Electronically signed by: Ketan Mensah MD 05/28/23 01:17 AM Code Status & VTE Plan VTE Prophylaxis Plan VTE Prophylaxis will be ordered: Yes PG Care Time/CCT Total # of Minutes Spent Total Time Spent with Patient: Total time spent is greater than 50% in coordination of care (as documented) at patient's floor/unit and/or counseling patient: Coding Level of Care Code 05452 INT INP/OBS CARE 2/55MIN Diagnoses Abnormal LFTs R79.89 GERD (gastroesophageal reflux disease) K21.9
--- NOTE | 2023-05-28 01:18 | Ultrasound Report ---
Exam(s): US ABDOMEN LIMITED EXAM: US Abdomen Limited, Right Upper Quadrant CLINICAL HISTORY: Reason for exam: s/p narinder, elevated LFT and bili.. TECHNIQUE: Real-time ultrasound of the right upper quadrant with image documentation. COMPARISON: CT performed earlier on the same date. FINDINGS: Liver: Hepatomegaly. Liver is of diffusely heterogeneous echotexture. No intrahepatic bile duct dilation. Gallbladder: Gallbladder is surgically absent. Common bile duct: Unremarkable as visualized. No stones. No dilation. Pancreas: Unremarkable as visualized. Right kidney: Unremarkable. No stones. No solid mass. No hydronephrosis. IMPRESSION: 1. Hepatomegaly 2. Fatty infiltration of the liver. Electronically signed by: Ketan Mensah MD 05/28/23 01:17 AM
[2023-05-28] MEDS ORDERED: MoRPHine SULFATE 4 MG/ML 1 ML CARP\\VIAL IV PRN (01:24)
[2023-05-28] MEDS ORDERED: ONDANSETRON INJ 2 MG/ML 2 ML VIAL IV PRN (01:24)
[2023-05-28] MEDS ORDERED: POLYETHYLENE (MIRALAX) 17 GM PACK PO PRN (01:24)
[2023-05-28 01:27] LABS: Appearance Urine Clear (Clear); Bacteria Urine Automated Negative (Negative); Bilirubin Urine Negative (Negative); Blood Urine 2+ (Negative); Cast Urine Automated 0 /lpf (0-5); Color Urine Dark Yellow; Epithelial Cell Urine Auto 0-5 /lpf (0-5); Glucose Urine UA Negative (Negative); Ketones Urine Negative (Negative); Leukocyte Esterase Urine Negative (Negative); Nitrite Urine Negative (Negative); Protein Urine Negative (Negative); Specific Gravity Urine > 1.045 (1.000-1.030); Urobilinogen Urine Negative (Negative); pH Urine 5.5 (4.5-7.5)
[2023-05-28 01:42] LABS: Prothrombin Time 10.9 Seconds (9.0-12.0)
[2023-05-28 02:08] LABS: Ferritin 46.7 ng/ml (8-388)
[2023-05-28 02:13] LABS: Magnesium 1.7 mg/dl (1.7-2.4)
[2023-05-28] MEDS: PIPERACILLIN/TAZOBACTAM 4.5 GM in DEXTROSE 5% 100 ML IV SCH ×3 (05:14→20:03)
[2023-05-28 07:08] LABS: Hematocrit (blood only) 29.2 % (37.0-47.0); Hemoglobin 9.5 g/dl (12.0-16.0); Mean Corpuscular Hemoglobin 28.2 pg (25.0-34.0); Mean Corpuscular Hgb Conc 32.5 g/dL (32.0-36.0); Mean Corpuscular Volume 86.6 fL (80.0-100.0); Mean Platelet Volume 11.1 fL (9.4-12.4); Platelet Count 205 K/uL (130-400); RDW Coefficient of Variation 15.9 % (11.5-14.5); RDW Standard Deviation 50.3 fL (36.4-46.3); Red Blood Count 3.37 M/uL (4.20-5.40); White Blood Count 8.99 K/ul (4.8-10.8)
[2023-05-28 07:26] LABS: BUN Creatinine Ratio 20.3 (10-20); Calcium 8.3 mg/dl (8.6-10.3); Creatinine Clr Calc Pharmacy 72.2 ml/min; Est GFR (African American) 109.2 ml/min; Est GFR (Non-African American) 94.2 ml/min; Potassium 3.7 mmol/L (3.5-5.1)
[2023-05-28] MEDS: SERTRALINE HCL 100 MG TABLET PO SCH (07:28)
[2023-05-28 07:48] LABS: Albumin Level 3.3 gm/dl (3.4-5.0); Bilirubin Direct 1.6 mg/dl (0-0.2); Bilirubin,Total 2.4 mg/dl (0.2-1.0); Total Protein 5.7 gm/dl (6.0-8.3)
--- NOTE | 2023-05-28 08:50 | XRay Report ---
XR chest 1V portable CLINICAL HISTORY: epigastric pain TECHNIQUE: Single frontal radiograph of the chest was obtained. Comparison: Comparison is made to CT chest 08/07/2022 FINDINGS: No lines and tubes are seen. The cardiomediastinal silhouette is normal. The lungs are clear. No evid ence of pleural effusion or pneumothorax. IMPRESSION: No acute chest disease. ACT 112: Negative or not required by law. Electronically signed by: Vargas Winkler M.D. 05/28/2023 8:48 AM
--- NOTE | 2023-05-28 08:52 | XRay Report ---
XR KUB/Abdomen 1 view CLINICAL HISTORY: epigastric pain TECHNIQUE: 1 view of the abdomen was obtained. Comparison: Comparison is made to chest and abdomen radiographs 02/29/2012 FINDINGS: Lung bases are unremarkable. Degenerative changes are seen in the visualized skeleton. Bilateral hip arthroplasties are seen. The bowel gas pattern is nonobstructive. A moderate amount of stool is noted within the large bowel. IMPRESSION: Nonobstructive bowel gas pattern. ACT 112: Negative or not required by law. Electronically signed by: Vargas Winkler M.D. 05/28/2023 8:51 AM
[2023-05-28] MEDS: PANTOprazole 40 MG in SYRINGE 0 ML IV SCH (10:20)
[2023-05-28] MEDS ORDERED: LORazepam 2 MG/1 ML VIAL IV STA (11:42)
--- NOTE | 2023-05-28 13:37 | Gastrointestinal Consultation ---
Date of Consultation May 28, 2023 History of Present Illness Attending Physician: Abraham Gallego MD History of Present Illness 67 yo F PMh , h/o RYGB in 2004, narinder at time of gastric bypass for symptomatic cholelithiasis, now admit with RUQ pain, abnl LFTs. Pt tells me that she has chronic intermittent RUQ pain for years. Pain has worsened in the past month - in the past month, has occurred once a week, lasting bat an hour, mod in severity, no n/v. Pt denies pain associated with food. Yesterday, approx one hour after eating lopez and eggs, she had severe RUQ pain rad to mid back that lasted for hours and was assoc with nausea. No vomiting. No pruritus. Pt denies jaundice, dark urine. No fever. On present to hospital, pt with hypertensive, afebrile, tender with vol guarding in RUQ. Her labs showed normal AST 1500 / ALT 560 / Bili 1.7 / AP 325, nl lipase. CT was read as no garfield dil, Left colon insussception. Labs also sig for normal trop's, stgable hgb 9.5. Overnight, she has been mildly hypotensive with systolic 90-100, afeb with persistent normal WBC, bili leah to 2.7. She has been maintained on Zosyn on. At present she denies any pain and hasn't received narcs since ER, is hungry, and passing flatus. MRCP is pending. PE: Comfortable, lying in bed HEENT: anicteric Abd: soft, tender RUQ A/P: Probable choledocholithiasis S?P RYGB Colonic intususception - Pt appears intermed prob, although high prob with CBD 12 mm and stone on CT by my read. Will f/u MRCP. Likely will need transfer to [facility] for [facility]. No present evidence of cholangitis, will defer abx to PCP. Clears today and follow labs. - Will need oupt csocpy, last in 2016 - Please request cardiology consult for clearance prior to anesthesia, due to . Allergies Allergy/AdvReac Type Severity Reaction Status Date / Time IVETH Inhibitors AdvReac Intermediate cough Verified 05/27/23 21:57 lisinopril AdvReac Intermediate Cough Verified 05/27/23 21:57 Home Medications Medication Instructions Recorded Confirmed Type biotin 10,000 mcg disintegrating 10,000 mcg PO DAILY 04/03/19 05/27/23 History tablet cyanocobalamin (vitamin B-12) 1,000 mcg PO DAILY 09/27/19 05/27/23 History 1,000 mcg tablet,extended release cholecalciferol (vitamin D3) 50 50 mcg PO DAILY 02/18/22 05/27/23 History mcg (2,000 unit) capsule coenzyme Q10 75 mg capsule (Ultra 75 mg PO DAILY 02/18/22 05/27/23 History CoQ10) magnesium citrate,mag oxide 250 mg 500 mg PO DAILY 09/07/22 05/27/23 History capsule sertraline 100 mg tablet 100 mg PO DAILY #90 tabs 09/23/22 05/27/23 Rx amoxicillin 500 mg capsule 2,000 mg PO DIRECTED 02/20/23 05/27/23 History aspirin 81 mg tablet,delayed 81 mg PO ONCE PRN palpitations #30 02/20/23 05/27/23 Rx release tabs diclofenac sodium 1 % topical gel 4 g topical QID PRN Pain #100 grams 03/14/23 05/27/23 Rx omeprazole 40 mg capsule,delayed 40 mg PO DAILY #90 caps 03/31/23 05/27/23 Rx release tramadol 50 mg tablet 100 mg PO TID #180 tabs 05/19/23 05/27/23 Rx Patient History Medical History Anemia Anxiety Aortic stenosis Chronic hip pain Dental abscess Depression Dermatitis GERD (gastroesophageal reflux disease) Hemorrhoids, internal Hx of venous thrombosis and embolism Hyperlipidemia Hypertension Iron deficiency anemia Mitral regurgitation Osteoarthritis Thrombophlebitis Tinnitus Vitamin B12 deficiency Vitamin D deficiency Xerosis cutis Surgical History H/O acute cholecystitis H/O gastric bypass H/O hernia repair H/O total hip arthroplasty History of colonoscopy (12/30/15) Dr. Merrill, nonbleeding internal hemorrhoids, otherwise unremarkable, recheck 10 years Family History Mother Colorectal cancer Sister Aortic valve replaced Brother Myocardial infarction Lung cancer Bladder cancer Esophageal cancer Other Diabetes Nephrolithiasis Ovarian cancer Denies family history of Prostate cancer Breast cancer Social History Smoking Status: Never smoker Second Hand Exposure: No; Do You Dip or Chew Tobacco: No; Hx Alcohol Use: No Hx Substance Use: No Preferred Language: Turkish Communication Ability: Effective Visual Impairment: No Limitations Hearing Ability: Normal Load Blocker Required: No Beliefs That Will Affect Care: Confucianist Confucianist Beliefs: No blood products marital status: Single Current Living Situation: Alone and Family current occupational status: retired Other Information That Helps Us Care for You: No Feels Safe at Home: Yes Safety Concerns: Feels Safe At This Time Childhood Exposure to Second-Hand Smoke: Yes caffeine: Yes Dental Care, Regularly: Yes Physical Activity Frequency: Does not Exercise Seatbelt Use: always Sunscreen Use: No Assistive Devices: Glasses Results & Data Vital Signs (Past 12 Hours) Vital Signs Temp Pulse Pulse Pulse Resp BP BP 05/28/23 11:41 36.9 C 73 16 103/46 L 05/28/23 08:10 66 05/28/23 07:23 37.2 C 71 18 93/53 L 05/28/23 03:00 36.8 C 81 16 92/54 L 83/43 L 05/28/23 01:44 36.9 C 92 H 16 112/65 Pulse Ox O2 Del Method 05/28/23 11:41 98 Room Air 05/28/23 08:10 05/28/23 07:23 95 Room Air 05/28/23 03:00 94 Room Air 05/28/23 01:44 98 Room Air
--- NOTE | 2023-05-28 14:20 | Hospitalist Progress Note ---
Date of Service May 28, 2023 Assessment & Plan (1) Abnormal LFTs: Plan: Abdominal discomfort has resolved. GI consultation and recommendations appreciated. MRCP report is pending. Will allow diet if the MRCP results are unremarkable. Patient is s/p cholecystectomy (2) GERD (gastroesophageal reflux disease): Plan: Stable. Continue Protonix therapy (3) H/O gastric bypass: Plan: No intervention needed at this time (4) Hypertension: Plan: Stable. Continue current medical management (5) Hyperlipidemia: Plan: Stable. Continue current medical management Plan Hopeful discharge to home soon Admission and Anticipated Discharge Date Admission Date: May 28, 2023 Subjective Alert and oriented. No distress. GI consultation and recommendations appreciated. MRCP was done and the final report is pending. This will determine her treatment plan. She is asking for food. If MRCP is unremarkable, will start her on a diet. Review of Systems Review of Systems: Constitutional-no fever or chills ENT-no blurred vision, no double vision, no epistaxis, no sore throat Respiratory-no cough, no wheezing, no shortness of breath Cardiac-no palpitations, no chest pain, no syncope GI-intermittent nausea and right upper quadrant discomfort. No hematemesis. No melena. No hematochezia -no urinary retention, no urinary incontinence, no dysuria, no hematuria Musculoskeletal-no joint pain, no muscle tenderness Skin-no bruising, no rashes, no pruritus Neuro-no isolated weakness, no paresthesia Psych-no depression, no anxiety Physical Exam Physical Exam: General-alert and oriented x3, no fevers, no chills HEENT-head atraumatic and normocephalic, pupils equal and reactive to light, extraocular muscles intact Neck-no lymphadenopathy or thyromegaly, trachea midline Chest-clear to auscultation percussion. No rales wheezing or rhonchi Cardiac-regular rate and rhythm, normal S1 and S2 Abdomen-normal bowel sounds, nontender, no hepatosplenomegaly Extremities-no cyanosis, clubbing, or edema Neuro-cranial nerves II through XII intact, motor and sensory function within normal limits, strength symmetrical , no focal deficits Psych-normal affect, normal mood Results & Data Results & Data Vital Signs (Past 12 Hours) Vital Signs Temp Pulse Pulse Resp BP BP Pulse Ox 05/28/23 11:41 36.9 C 73 16 103/46 L 98 05/28/23 08:10 66 05/28/23 07:23 37.2 C 71 18 93/53 L 95 05/28/23 03:00 36.8 C 81 16 92/54 L 83/43 L 94 O2 Del Method 05/28/23 11:41 Room Air 05/28/23 08:10 05/28/23 07:23 Room Air 05/28/23 03:00 Room Air Laboratory Results 05/28/23 05:59 05/28/23 05:59 PG Care Time/CCT Total # of Minutes Spent Total Time Spent with Patient: Total time spent is greater than 50% in coordination of care (as documented) at patient's floor/unit and/or counseling patient: Coding Level of Care Code 86536 SUB INP/OBS CARE 3/50MIN Diagnoses Abnormal LFTs R79.89 GERD (gastroesophageal reflux disease) K21.9 H/O gastric bypass Z98.84 Hypertension I10 Hypertension type: essential hypertension Hyperlipidemia E78.5 Hyperlipidemia type: unspecified (4) Hypertension Hypertension type: essential hypertension Qualified Code(s): I10 - Essential (primary) hypertension (5) Hyperlipidemia Hyperlipidemia type: unspecified Qualified Code(s): E78.5 - Hyperlipidemia, unspecified
--- NOTE | 2023-05-28 18:25 | Emergency Department Note ---
Impression & Plan Elevated LFTs, Abdominal pain, S/P cholecystectomy, S/P gastric bypass ED Provider Note CHIEF COMPLAINT: Abdominal pain HISTORY OF PRESENT ILLNESS: This 67-year-old female patient presents to the emergency department with complaints of mid upper abdominal pain. The pain has been intermittent for several weeks but today the pain came around 130pm and has remained. She is nauseated but has not vomited. She did take an Aleve for the discomfort. Patient states she has a history of gastric bypass and cholecystectomy. Patient denies any chest pain or shortness of breath. She denies any blood in the stools. Additional history was obtained per her daughter at the bedside. REVIEW OF SYSTEMS: A review of systems was performed with positives and pertinent negatives listed in the history of present illness. 10 systems were reviewed and are otherwise negative. ALLERGIES: see below MEDICATIONS: see below PMH: see below SOCIAL HISTORY: see below DDx: Peptic ulcer disease, anastomotic leak/stenosis/ulcer, bowel obstruction, choledocholithiasis, obstructing mass, among others. PHYSICAL EXAM: Vital signs reviewed. General: Well-appearing 67-year-old female, in no significant distress. HEENT: No scleral icterus, PERRLA, neck supple. Moist mucous membranes. Cardiovascular: Regular rate and rhythm, systolic ejection murmur Pulmonary: Clear to auscultation bilaterally, normal work of breathing. Abdomen: Soft, mid upper abdominal tenderness, no rebound or guarding, non distended, positive bowel sounds. Musculoskeletal: Atraumatic, no peripheral edema. Neurologic: Patient awake alert and oriented x 3 Skin: Warm, dry, no rash EMERGENCY DEPARTMENT COURSE/MDM: This patient was evaluated and appeared to be in no significant distress. External medical records were reviewed. IV access was obtained and laboratory work was drawn. Patient was hydrated with normal saline solution, given IV morphine and Zofran for her discomfort. Patient was medicated with IV Protonix 40 mg as well as Zosyn 4.5 g IV after laboratory work is concerning for elevated LFTs. I do have concerns over choledocholithiasis however the CT imaging reveals no obvious findings. Follow-up MRI of the right upper quadrant was then performed, significant only for hepatomegaly and p ostcholecystectomy. Patient's case was discussed with Dr. Ortega of the hospitalist service was agreed to evaluate the patient for admission and further management. Patient was informed of the findings and plan and agreed. MONITORING: An order for cardiac monitoring was placed and the patient is noted to be in a normal sinus rhythm at 91 beats per minute. RADIOLOGY: KUB to my interpretation reveals no evidence of obstruction or free air. Otherwise defer to radiology. She Chest x-ray to my interpretation reveals no evidence of focal lung consolidation or failure. Otherwise defer to radiology. CT imaging of the abdomen and pelvis per radiology reveals 1. Intussusception within the left lower quadrant. No obstruction present 2. Postoperative changes prior cholecystectomy DISPOSITION: Admission Past Med/Surg History Medical History Anemia Anxiety Aortic stenosis Chronic hip pain Dental abscess Depression Dermatitis GERD (gastroesophageal reflux disease) Hemorrhoids, internal Hx of venous thrombosis and embolism Hyperlipidemia Hypertension Iron deficiency anemia Mitral regurgitation Osteoarthritis Thrombophlebitis Tinnitus Vitamin B12 deficiency Vitamin D deficiency Xerosis cutis Surgical History H/O acute cholecystitis H/O gastric bypass H/O hernia repair H/O total hip arthroplasty History of colonoscopy (12/30/15) Dr. Merrill, nonbleeding internal hemorrhoids, otherwise unremarkable, recheck 10 years Family History Mother Colorectal cancer Sister Aortic valve replaced Brother Myocardial infarction Lung cancer Bladder cancer Esophageal cancer Other Diabetes Nephrolithiasis Ovarian cancer Denies family history of Prostate cancer Breast cancer Social History Smoking Status: Never smoker Second Hand Exposure: No; Do You Dip or Chew Tobacco: No; Hx Alcohol Use: No Hx Substance Use: No Preferred Language: Brazilian Communication Ability: Effective Visual Impairment: No Limitations Hearing Ability: Normal Master 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 Required: No Beliefs That Will Affect Care: Episcopal Episcopal Beliefs: No blood products marital status: Single Current Living Situation: Alone and Family current occupational status: retired Feels Safe at Home: Yes Childhood Exposure to Second-Hand Smoke: Yes caffeine: Yes Dental Care, Regularly: Yes Physical Activity Frequency: Does not Exercise Seatbelt Use: always Sunscreen Use: No Assistive Devices: None Allergies Allergies Allergy/AdvReac Type Severity Reaction Status Date / Time IVETH Inhibitors AdvReac Intermediate cough Verified 05/27/23 21:57 lisinopril AdvReac Intermediate Cough Verified 05/27/23 21:57 Home Meds Home Medications Medication Instructions Recorded Confirmed biotin 10,000 mcg disintegrating 10,000 mcg PO DAILY 04/03/19 05/27/23 tablet cyanocobalamin (vitamin B-12) 1,000 mcg PO DAILY 09/27/19 05/27/23 1,000 mcg tablet,extended release cholecalciferol (vitamin D3) 50 50 mcg PO DAILY 02/18/22 05/27/23 mcg (2,000 unit) capsule coenzyme Q10 75 mg capsule (Ultra 75 mg PO DAILY 02/18/22 05/27/23 CoQ10) magnesium citrate,mag oxide 250 mg 500 mg PO DAILY 09/07/22 05/27/23 capsule amoxicillin 500 mg capsule 2,000 mg PO DIRECTED 02/20/23 05/27/23 Previous Rx's Medication Instructions Recorded sertraline 100 mg tablet 100 mg PO DAILY #90 tabs 09/23/22 aspirin 81 mg tablet,delayed 81 mg PO ONCE PRN palpitations #30 02/20/23 release tabs diclofenac sodium 1 % topical gel 4 g topical QID PRN Pain #100 grams 03/14/23 omeprazole 40 mg capsule,delayed 40 mg PO DAILY #90 caps 03/31/23 release tramadol 50 mg tablet 100 mg PO TID #180 tabs 05/19/23 potassium chloride 10 mEq 10 meq PO DAILY 3 days #3 tabs 05/29/23 tablet,extended release Results & Data (ED) Vital Signs Vital Signs - 24 hr 05/27/23 19:08 05/27/23 19:35 05/27/23 20:00 Temperature 37 C Temperature Source Temporal Artery Scan Pulse Rate 92 H 91 H 85 Pulse Rate [Left Brachial] Pulse Rate from SpO2 Sensor 85 Pulse Rhythm Regular Pulse Rhythm [Left Brachial] Pulse Strength Normal Pulse Strength [Left Brachial] Respiratory Rate 19 19 Respiratory Effort / Characteristics Non-Labored Spontaneous Respiratory Depth Normal Respiratory Pattern Regular Blood Pressure 178/80 H 158/69 H Blood Pressure [Right Arm] Blood Pressure Mean 112 98 Blood Pressure Mean [Right Arm] Blood Pressure Position Sitting Blood Pressure Position [Right Arm] Pulse Oximetry 100 97 Oxygen Delivery Method Room Air Room Air Sepsis Recent Fever Within 48 Hours No Sepsis New/Unexplained Change in Mental Status N/A Sepsis Action Taken by Nursing No Action Required 05/27/23 20:30 05/27/23 21:00 05/27/23 22:02 Temperature Temperature Source Pulse Rate 80 93 H Pulse Rate [Left Brachial] Pulse Rate from SpO2 Sensor 78 99 H Pulse Rhythm Pulse Rhythm [Left Brachial] Pulse Strength Pulse Strength [Left Brachial] Respiratory Rate 18 16 Respiratory Effort / Characteristics Respiratory Depth Respiratory Pattern Blood Pressure 157/70 H 147/74 H 158/64 H Blood Pressure [Right Arm] Blood Pressure Mean 99 98 95 Blood Pressure Mean [Right Arm] Blood Pressure Position Blood Pressure Position [Right Arm] Pulse Oximetry 96 95 95 Oxygen Delivery Method Room Air Room Air Room Air Sepsis Recent Fever Within 48 Hours Sepsis New/Unexplained Change in Mental Status Sepsis Action Taken by Nursing 05/27/23 22:30 05/27/23 22:51 05/27/23 22:52 Temperature Temperature Source Pulse Rate Pulse Rate [Left Brachial] 95 H Pulse Rate from SpO2 Sensor Pulse Rhythm Pulse Rhythm [Left Brachial] Regular Pulse Strength Pulse Strength [Left Brachial] Normal Respiratory Rate 19 Respiratory Effort / Characteristics Non-Labored Spontaneous Respiratory Depth Normal Respiratory Pattern Regular Blood Pressure 134/68 Blood Pressure [Right Arm] 134/68 Blood Pressure Mean 90 Blood Pressure Mean [Right Arm] 90 Blood Pressure Position Blood Pressure Position [Right Arm] Lying Pulse Oximetry 95 Oxygen Delivery Method Room Air Room Air Sepsis Recent Fever Within 48 Hours Sepsis New/Unexplained Change in Mental Status Sepsis Action Taken by Skilled Nursing Medications Current Medication List: was personally reviewed by me Laboratory Data Attestation: I reviewed the patient's lab results. 05/28/23 05:59 05/28/23 05:59 Lab Results 05/27/23 05/27/23 05/27/23 Range/Units 20:45 20:45 20:45 WBC 2.74 L (4.8-10.8) K/ul RBC 3.79 L (4.20-5.40) M/uL Hgb 10.6 L (12.0-16.0) g/dl Hct 33.1 L (37.0-47.0) % MCV 87.3 (80.0-100.0) fL MCH 28.0 (25.0-34.0) pg MCHC 32.0 (32.0-36.0) g/dL RDW Std Deviation 51.2 H (36.4-46.3) fL RDW Coeff of Dotty 15.9 H (11.5-14.5) % Plt Count 214 (130-400) K/uL MPV 10.8 (9.4-12.4) fL Immature Gran % (Auto) 0.0 % Neut % (Auto) 95.2 % Lymph % (Auto) 2.9 % Keith % (Auto) 1.5 % Eos % (Auto) 0.0 % Baso % (Auto) 0.4 % Neut # (Auto) 2.61 (1.40-6.50) K/uL Lymph # (Auto) 0.08 L (1.2-3.4) K/uL Keith # (Auto) 0.04 L (0.11-0.59) K/uL Eos # (Auto) 0.00 (0-0.50) K/uL Baso # (Auto) 0.01 (0-0.2) K/uL Immature Gran # (Auto) 0.00 L (0.01-0.20) K/uL PT 10.9 (9.0-12.0) Seconds INR 1.0 (0.9-1.1) Sodium 136 (136-145) mmol/L Potassium 3.6 (3.5-5.1) mmol/L Chloride 103 (98-107) mmol/L Carbon Dioxide 25 (21-32) mmol/L Anion Gap 8 (3-11) BUN 16 (6-23) mg/dl Creatinine 0.52 L (0.6-1.2) mg/dl Est Cr Clr Drug Dosing Not Reportable Est GFR ( Amer) 113.8 ml/min Est GFR (Non-Af Amer) 98.2 ml/min BUN/Creatinine Ratio 30.8 H (10-20) Glucose 126 H (70-99(Fasting)) mg/dl Calcium 8.8 (8.6-10.3) mg/dl Magnesium 1.7 (1.7-2.4) mg/dl Ferritin 46.7 (8-388) ng/ml Total Bilirubin 1.7 H (0.2-1.0) mg/dl AST 1577 H (13-39) U/L ALT 560 H (7-52) U/L Alkaline Phosphatase 325 H (34-104) U/L Troponin I High Sens 13.2 (0-14) pg/ml Total Protein 6.4 (6.0-8.3) gm/dl Albumin 3.8 (3.4-5.0) gm/dl Globulin 2.6 (2.5-4.0) gm/dl Albumin/Globulin Ratio 1.5 (0.9-2) Lipase 27 (11-82) U/L Administered Medications Discontinued Medications Sodium Chloride (Nss 1000ml) 1,000 mls @ 999 mls/hr IV .Q1H1M STA Stop: 05/27/23 21:20 Last Infusion: 05/27/23 22:27 Dose: 0 mls/hr Documented By: Admin: 05/27/23 20:42 Dose: 999 mls/hr Documented By: MARQUITA Pantoprazole Sodium 80 mg/ (Dextrose) 120 mls @ 480 mls/hr IV ONE STA Stop: 05/27/23 20:34 Last Infusion: 05/27/23 22:27 Dose: 0 mls/hr Documented By: Admin: 05/27/23 22:01 Dose: 480 mls/hr Documented By: MARQUITA Piperacillin Sod/Tazobactam Sod (Zosyn) 4.5 gm in 120 mls @ 240 mls/hr IV NOW ONE Stop: 05/27/23 22:22 Last Infusion: 05/27/23 23:04 Dose: 0 mls/hr Documented By: Admin: 05/27/23 22:28 Dose: 240 mls/hr Documented By: FABRICIO Pantoprazole Sodium 40 mg/ (Syringe) 10 mls @ 5 mls/min IV DAILY@1100 THERON Stop: 06/27/23 10:59 Last Admin: 05/29/23 11:34 Dose: 5 mls/min Documented By: Admin: 05/28/23 10:20 Dose: 5 mls/min Documented By: EVON Piperacillin Sod/Tazobactam (Sod 4.5 gm/ Dextrose) 120 mls @ 30 mls/hr IV Q8H THERON; Protocol Stop: 06/07/23 04:44 Last Admin: 05/29/23 13:46 Dose: 30 mls/hr Documented By: Infusion: 05/29/23 09:16 Dose: 0 mls/hr Documented By: Admin: 05/29/23 05:16 Dose: 30 mls/hr Documented By: Infusion: 05/29/23 00:03 Dose: 0 mls/hr Documented By: Admin: 05/28/23 20:03 Dose: 30 mls/hr Documented By: Infusion: 05/28/23 17:11 Dose: 0 mls/hr Documented By: Admin: 05/28/23 13:08 Dose: 30 mls/hr Documented By: Infusion: 05/28/23 10:05 Dose: 0 mls/hr Documented By: Admin: 05/28/23 05:14 Dose: 30 mls/hr Documented By: OWEN Sodium Chloride (Nss 1000ml) 1,000 mls @ 80 mls/hr IV .[id number] THERON Stop: 06/27/23 18:59 Last Infusion: 05/29/23 11:57 Dose: 0 mls/hr Documented By: Admin: 05/29/23 07:51 Dose: 80 mls/hr Documented By: Infusion: 05/29/23 07:51 Dose: 80 mls/hr Documented By: Admin: 05/28/23 19:54 Dose: 80 mls/hr Documented By: SILVANO Ioversol (Optiray 320 100ml) 95 ml IV ONCE ONE Stop: 05/27/23 21:32 Last Admin: 05/27/23 21:33 Dose: 95 ml Documented By: ZIA Lorazepam (Lorazepam 2 Mg/1 Ml Vial) 1 mg IV NOW STA Stop: 05/28/23 11:43 Last Admin: 05/28/23 11:59 Dose: 1 mg Documented By: EVON Morphine Sulfate (Morphine Sulfate 4 Mg/Ml 1 Ml Carp\Vial) 4 mg IV NOW STA Stop: 05/27/23 20:21 Last Admin: 05/27/23 20:38 Dose: 4 mg Documented By: MARQUITA Morphine Sulfate (Morphine Sulfate 2 Mg/Ml Carp) 2 mg IV Q3H PRN PRN Reason: Pain (1,2,3,4,5) & Pre PT Stop: 06/11/23 01:23 Last Admin: 05/29/23 09:27 Dose: 2 mg Documented By: Admin: 05/29/23 05:10 Dose: 2 mg Documented By: Admin: 05/28/23 20:09 Dose: 2 mg Documented By: SILVANO Ondansetron HCl (Ondansetron Inj 2 Mg/Ml 2 Ml Vial) 4 mg IV NOW STA Stop: 05/27/23 20:21 Last Admin: 05/27/23 20:38 Dose: 4 mg Documented By: MARQUITA Potassium Chloride (Potassium Chloride Crtab 20 Meq Tabcr) 20 meq PO TID THERON Stop: 05/29/23 21:01 Last Admin: 05/29/23 13:46 Dose: 20 meq Documented By: Admin: 05/29/23 09:20 Dose: 20 meq Documented By: JEAN Sertraline HCl (Sertraline Hcl 100 Mg Tablet) 100 mg PO DAILY THERON Stop: 06/27/23 08:59 Last Admin: 05/29/23 08:20 Dose: 100 mg Documented By: Admin: 05/28/23 07:28 Dose: 100 mg Documented By: EVON Imaging Data My Impression: Abdomen/Pelvis CT 05/27/23 20:20 Exam(s): CT ABDOMEN + PELVIS With Contrast IV Amt: 95 ml optiray 320 EXAM: CT Abdomen and Pelvis With Intravenous Contrast CLINICAL HISTORY: Reason for exam: remote gastric bypass, epigastric pain. TECHNIQUE: Axial computed tomography images of the abdomen and pelvis with intravenous contrast. CTDI is 14.97 mGy and DLP is 648.18 mGy-cm. Automated exposure control was utilized for the study. A dose lowering technique was utilized adhering to the principles of ALARA. CONTRAST: Patient received 95 ml optiray 320 of IV contrast COMPARISON: 03/27/2017 FINDINGS: Lung bases: Unremarkable. No mass. No consolidation. ABDOMEN: Liver: Mild intrahepatic biliary ductal dilatation within normal limits for patient clinical history. Gallbladder and bile ducts: Postoperative changes prior cholecystectomy. Pancreas: Unremarkable. No mass. No ductal dilation. Spleen: Unremarkable. No splenomegaly. Adrenals: Unremarkable. No mass. Kidneys and ureters: Unremarkable. No solid mass. No hydronephrosis. Stomach and bowel: Postoperative changes of the stomach. Nonobstructing intussusception and a short segment of colon about the anastomotic suture line in the left lower quadrant. This is best appreciated on coronal image 52 series 300.. No mucosal thickening. PELVIS: Appendix: No findings to suggest acute appendicitis. Bladder: Unremarkable. No mass. Reproductive: Unremarkable as visualized. ABDOMEN and PELVIS: Intraperitoneal space: Unremarkable. No free air. No significant fluid collection. Bones/joints: Bilateral hip arthroplasties limits evaluation of the pelvis. No acute fracture. No dislocation. Soft tissues: Unremarkable. Vasculature: Unremarkable. No abdominal aortic aneurysm. Lymph nodes: Unremarkable. No enlarged lymph nodes. IMPRESSION: 1. Intussusception within the left lower quadrant. No obstruction present 2. Postoperative changes prior cholecystectomy Electronically signed by: Ketan Mensah MD 05/27/23 22:03 PM KUB X-Ray 05/27/23 20:20 XR KUB/Abdomen 1 view CLINICAL HISTORY: epigastric pain TECHNIQUE: 1 view of the abdomen was obtained. Comparison: Comparison is made to chest and abdomen radiographs 02/29/2012 FINDINGS: Lung bases are unremarkable. Degenerative changes are seen in the visualized skeleton. Bilateral hip arthroplasties are seen. The bowel gas pattern is nonobstructive. A moderate amount of stool is noted within the large bowel. IMPRESSION: Nonobstructive bowel gas pattern. ACT 112: Negative or not required by law. Electronically signed by: Vargas Winkler M.D. 05/28/2023 8:51 AM Chest X-Ray 05/27/23 20:21 XR chest 1V portable CLINICAL HISTORY: epigastric pain TECHNIQUE: Single frontal radiograph of the chest was obtained. Comparison: Comparison is made to CT chest 08/07/2022 FINDINGS: No lines and tubes are seen. The cardiomediastinal silhouette is normal. The lungs are clear. No evidence of pleural effusion or pneumothorax. IMPRESSION: No acute chest disease. ACT 112: Negative or not required by law. Electronically signed by: Vargas Winkler M.D. 05/28/2023 8:48 AM Abdomen Ultrasound 05/27/23 22:30 Exam(s): US ABDOMEN LIMITED EXAM: US Abdomen Limited, Right Upper Quadrant CLINICAL HISTORY: Reason for exam: s/p narinder, elevated LFT and bili.. TECHNIQUE: Real-time ultrasound of the right upper quadrant with image documentation. COMPARISON: CT performed earlier on the same date. FINDINGS: Liver: Hepatomegaly. Liver is of diffusely heterogeneous echotexture. No intrahepatic bile duct dilation. Gallbladder: Gallbladder is surgically absent. Common bile duct: Unremarkable as visualized. No stones. No dilation. Pancreas: Unremarkable as visualized. Right kidney: Unremarkable. No stones. No solid mass. No hydronephrosis. IMPRESSION: 1. Hepatomegaly 2. Fatty infiltration of the liver. Electronically signed by: Ketan Mensah MD 05/28/23 01:17 AM Radiologist's Impression: KUB X-Ray 05/27/23 20:20 XR KUB/Abdomen 1 view CLINICAL HISTORY: epigastric pain TECHNIQUE: 1 view of the abdomen was obtained. Comparison: Comparison is made to chest and abdomen radiographs 02/29/2012 FINDINGS: Lung bases are unremarkable. Degenerative changes are seen in the visualized skeleton. Bilateral hip arthroplasties are seen. The bowel gas pattern is nonobstructive. A moderate amount of stool is noted within the large bowel. IMPRESSION: Nonobstructive bowel gas pattern. ACT 112: Negative or not required by law. Electronically signed by: Vargas Winkler M.D. 05/28/2023 8:51 AM Chest X-Ray 05/27/23 20:21 XR chest 1V portable CLINICAL HISTORY: epigastric pain TECHNIQUE: Single frontal radiograph of the chest was obtained. Comparison: Comparison is made to CT chest 08/07/2022 FINDINGS: No lines and tubes are seen. The cardiomediastinal silhouette is normal. The lungs are clear. No evidence of pleural effusion or pneumothorax. IMPRESSION: No acute chest disease. ACT 112: Negative or not required by law. Electronically signed by: Vargas Winkler M.D. 05/28/2023 8:48 AM Discharge Plan Visit Data Chief Complaint: Abdominal Pain Stated Complaint: ABDOMINAL PAIN ED Provider: Graciela Martines Discharge Problem: Elevated LFTs, Abdominal pain, S/P cholecystectomy, S/P gastric bypass Patient Disposition: Admitted As Inpatient Discharge Instructions Interventions: ED Discharge Assessment Last Done: 05/28/23 01:12 Abdominal pain Qualifiers: Abdominal location: upper abdomen, unspecified Qualified Code(s): R10.10 - Upper abdominal pain, unspecified
[2023-05-28] MEDS: SODIUM CHLORIDE 0.9% 1000ML 1,000 ML IV SCH (19:54)
[2023-05-28] MEDS: MoRPHine SULFATE 2 MG/ML CARP IV PRN (20:09)
--- NOTE | 2023-05-28 20:46 | Magnetic Resonance Report ---
MR MRCP CLINICAL HISTORY: RUQ pain, abnormal LFTs TECHNIQUE: Multiplanar multisequence MR images of the abdomen were obtained, as per MRCP protocol. . COMPARISON: Comparison is made to CT abdomen pelvis 05/27/2023 FINDINGS: Exam is limited by patient motion. Lower chest: No acute abnormality Liver: Unremarkable. No focal lesions are seen. Gallbladder and biliary tree: No calcified gallstones. Normal caliber wall. There is a 6 mm filling d efect in the distal common bile duct with proximal biliary ductal dilation. There is also an 8 mm nod ule at the proximal common bile duct. Pancreas: Unremarkable, no focal lesions. Spleen: Unremarkable. Adrenals: Unremarkable. Kidneys and ureters: Unremarkable. Bowel: Unremarkable. Lymph nodes Retroperitoneal: Unremarkable. Mesenteric: Unremarkable. Peritoneum: Normal Vessels: Unremarkable. Abdominal wall: Unremarkable. Bones: Unremarkable. IMPRESSION: Obstructive stones in the common bile duct with proximal biliary ductal dilation, compatible with obs tructive choledocholithiasis. ACT 112: Negative or not required by law. Electronically signed by: Vargas Winkler M.D. 05/28/2023 8:43 PM
[2023-05-29] MEDS: MoRPHine SULFATE 2 MG/ML CARP IV PRN ×2 (05:10→09:27)
[2023-05-29] MEDS: PIPERACILLIN/TAZOBACTAM 4.5 GM in DEXTROSE 5% 100 ML IV SCH ×2 (05:16→13:46)
[2023-05-29] MEDS: SODIUM CHLORIDE 0.9% 1000ML 1,000 ML IV SCH (07:51)
[2023-05-29 08:13] LABS: Hematocrit (blood only) 28.5 % (37.0-47.0); Mean Corpuscular Hemoglobin 27.4 pg (25.0-34.0); Mean Corpuscular Hgb Conc 31.6 g/dL (32.0-36.0); Mean Corpuscular Volume 86.9 fL (80.0-100.0); Mean Platelet Volume 11.1 fL (9.4-12.4); Platelet Count 187 K/uL (130-400); RDW Coefficient of Variation 16.4 % (11.5-14.5); RDW Standard Deviation 51.8 fL (36.4-46.3); Red Blood Count 3.28 M/uL (4.20-5.40); White Blood Count 7.29 K/ul (4.8-10.8)
[2023-05-29] MEDS: SERTRALINE HCL 100 MG TABLET PO SCH (08:20)
[2023-05-29 08:28] LABS: BUN Creatinine Ratio 17.2 (10-20); Bilirubin,Total 1.7 mg/dl (0.2-1.0); Calcium 8.5 mg/dl (8.6-10.3); Creatinine Clr Calc Pharmacy 73.4 ml/min; Est GFR (African American) 109.8 ml/min; Est GFR (Non-African American) 94.7 ml/min; Potassium 3.3 mmol/L (3.5-5.1); Total Protein 5.4 gm/dl (6.0-8.3)
[2023-05-29] MEDS: POTASSIUM CHLORIDE CRTAB 20 MEQ TABCR PO SCH ×2 (09:20→13:46)
--- NOTE | 2023-05-29 10:07 | Gastroenterology Progress Note ---
Date of Service May 29, 2023 Assessment & Plan (1) Choledocholithiasis: Plan: w chronic, intermittent pain, currently resolved. No evidecne of cholangitis. Plan She is S/P RYGB, so unable to under ERCP but is a candidate for EDGE (ERCP w special instruments to allow access to the CBD - which is available only at [facility] or [place] but advanced endoscopist). Advance diet. If able to tolerate a regular consistency, low fat diet, w/o pain then may be discharged. Planning for OP EDGE at [facility] next week. Pt is agreeable to this plan. Admission and Anticipated Discharge Date Admission Date: May 28, 2023 Supervising Physician Co-Signing Physician Notes Attg add: Pt without pain, devi clears, falling LFTs and normal bili. Adv to low fat diet, will attempt EDGE next week as outpt at [facility]. If fails PO trial, then will re-eval Subjective 67 yr old female who is post GB who presented w post prandial upper abd pain which is now resolved. Imaging w choledocholithiasis. No fevers or leukocytosis (no evidence of cholangitis). CT, MRCP w distal CBD stones. Review of Systems Review of Systems: ROS: Gen: Denies weakness, fevers, weight loss Eyes: No eye redness, or pain, no recent vision changes Resp: No SOB, no cough Cardio: No palpitations/irregular beats, no chest pain GI: No abdominal pain, no nausea/vomiting : Denies pain on urination Skin: No jaundice, itching or new rashes Physical Exam Constitutional: WD/WN, vitals as above + thin Eyes: PERRL, conjunctivae normal, anicteric sclerae ENMT: external ear and nose normal, oropharynx normal Neck: trachea midline, no thyromegaly Respiratory: normal respiratory effort, lungs clear to auscultation Cardiovascular: regular rhythm; 3/6 systolic murmur consistent w . Gastrointestinal (Abdomen): normal bowel sounds, soft, nontender, no hepatosplenomegaly Musculoskeletal: no cyanosis or clubbing, extremities motor strength 5/5 Skin: pale, no lesions or rashes, no jaundice Neurologic: PERRL, EOMI, accommodation nl, no face palsy, no dysarthria Psychiatric: A+Ox3, euthymic affect Lymphatic: no cervical or axillary lymphadenopathy Results & Data Vital Signs (Past 12 Hours) Vital Signs Temp Pulse Pulse Resp BP Pulse Ox O2 Del Method 05/28/23 22:05 63 05/29/23 07:24 37.0 C 65 18 127/76 97 Room Air 05/29/23 07:09 61 05/29/23 03:26 37.0 C 70 18 130/70 97 Room Air 05/28/23 23:22 36.9 C 67 18 102/66 97 Room Air Laboratory Results WBC 7.2, Hb 9.0, Hct 28.5, Plts 187, INR 1.0, Na 141, K 3.8, Cl 109, CO2 27, BUN 10, Cr 0.5 T Bili 1.7, D Bili 1.0, AST 309, ALT 326, Alk Phos 228. Diagnostic Findings MRCP 05/29/23: Gallbladder and biliary tree: No calcified gallstones. Normal caliber wall. There is a 6 mm filling defect in the distal common bile duct with proximal biliary ductal dilation. There is also an 8 mm nodule at the proximal common bile duct.
[2023-05-29] MEDS: PANTOprazole 40 MG in SYRINGE 0 ML IV SCH (11:34)
--- NOTE | 2023-05-29 15:54 | Discharge Summary ---
Date of Service May 29, 2023 Admission HPI Per Admitting Provider Mabel Blevins is a 67yo female with history of aortic stenosis, HTN, HLP and GERD presenting with epigastric abdominal pain. Patient has been experiencing intermittent epigastric pain for the last month. Her pain would come at random and last approximately 20-30 minutes then resolve on its own. Over the last several days she has been experiencing more episodes of epigastric pain, increased duration and severity. Today around 13:30 patient developed severe epigastric pain that has persisted. The pain is 10/10 in severity and gnawing. She had her gallbladder removed but states that this pain feels similar to her prior gallstone attacks. Patient had some chills today but otherwise denies fever, vomiting, diarrhea. She had some nausea this evening with her severe pain. No chest pain, cough or shortness of breath In the ER she is afebrile, HD stable and NAD Discharge Data Allergies Allergy/AdvReac Type Severity Reaction Status Date / Time IVETH Inhibitors AdvReac Intermediate cough Verified 05/27/23 21:57 lisinopril AdvReac Intermediate Cough Verified 05/27/23 21:57 Consultations 05/27/23 22:53 ED Decision to Admit Stat 05/28/23 01:24 Consult Gastroenterology Routine Ordered Studies 05/27/23 20:20 CT abd pelvis IV con only Stat 05/27/23 22:30 US abdomen limited Stat 05/28/23 01:24 MRI MRCP [MR MRCP] Routine Hospital Course (1) Abnormal LFTs: Abdominal discomfort has resolved. GI consultation and recommendations appreciated. MRCP report is pending. Will allow diet if the MRCP results are unremarkable. Patient is s/p cholecystectomy (2) GERD (gastroesophageal reflux disease): Stable. Continue Protonix therapy (3) H/O gastric bypass: No intervention needed at this time (4) Hypertension: Stable. Continue current medical management (5) Hyperlipidemia: Stable. Continue current medical management (6) Choledocholithiasis with obstruction: Plan Hopeful discharge to home soon Discharge Plan Discharge Items Patient Disposition: Home - Self-Care Reason For Visit: ABDOMINAL PAIN Discharge Diagnosis: 1. Abdominal pain & abnormal liver function tests due to "choledocholithiasis" (gallstones in your bile duct). 2. Abnormal liver function tests - improving. 3. Abdominal pain - resolved. 4. Mildly low potassium. Activity: As commented below Activity Comment: light activities until your GI procedure is completed next week Non-emergency contact: Primary Care Provider and Booking Clerk Call non-emergency contact if: you have any medication questions, your symptoms worsen, your pain is not controlled, your pain is worsening, your pain is unusual for you, your pain is concerning for you and you have a fever Follow-up/Referrals: Elsy Her PA-C [Primary Care Provider] - 06/01/23 9:30 am (Please follow up with your PCP office on June 01 at 09:30am.) Roenn Baumann MD [Physician] - 06/07/23 (time to be determined for your GI procedure next week at [facility] [address] ) Diet: Low Fat and Bariatric Addtl Attending Provider Instructions: Mrs Blevins, You were hospitalized due to severe abdominal pain. Upon presentation your liver function tests were found to be quite elevated. Imaging of your abdomen showed that you have gallstones in your bile duct. This causes blockage of bile flow which then leads to the elevated liver tests and your pain. Fortunately you improved nicely with supportive care and time. Your liver function tests are coming down. Your abdominal pain has resolved and has not recurred. [facility] saw you in consult and you will need a special procedure next week to take care of the gallstones in your bile duct. This procedure is not done at [facility] unfortunately. The procedure will be done at [facility] [address] by [facility]. Until your procedure please do the following - 1. low fat diet (see handouts) 2. stay well hydrated each day 3. avoid [id number] tylenol if at all possible as your liver function tests are still abnormal 4. avoid all [id number]-[id number] anti-inflammatory pills; this includes motrin, ibuprofen, aleve, naprosyn, aspirin, etc. 5. take a potassium supplement x 3 days starting tomorrow, 05/30/23 6. no alcohol use 7. if you experience recurrent abdominal pains similar to what brought you to the hospital please come back to the [facility] ER for evaluation 8. follow-up with your family doctor later this week; have a repeat potassium level and liver function tests Return to [facility] if - * you have fevers over 100 degrees * you have shaking chills * you have recurrent abdominal pains * you have significant nausea and/or vomiting * you have yellowing of your eyes or skin * any other concerns It was our pleasure to care for you! -Dr Villafana Pending Studies at Discharge: No Stand-Alone Forms: My [facility], Smoking Cessation Medications and DC Order Prescriptions: New potassium chloride 10 mEq tablet extended release 10 meq PO DAILY 3 Days Qty: 3 0RF Rx Instructions: start 05/30/23. Continued sertraline 100 mg tablet 100 mg PO DAILY Qty: 90 3RF diclofenac sodium 1 % gel 4 g TOP QID PRN (Reason: Pain) Qty: 100 2RF Rx Instructions: Apply 4 GM to affected area 4 times daily. DO NOT apply more than 16 GM daily. omeprazole 40 mg capsule,delayed release(DR/EC) 40 mg PO DAILY Qty: 90 0RF tramadol 50 mg tablet 100 mg PO TID Qty: 180 0RF cyanocobalamin (vitamin B-12) 1,000 mcg tablet extended release 1,000 mcg PO DAILY amoxicillin 500 mg capsule 2,000 mg PO DIRECTED Rx Instructions: before dentist cholecalciferol (vitamin D3) 50 mcg (2,000 unit) capsule 50 mcg PO DAILY Ultra CoQ10 75 mg capsule 75 mg PO DAILY biotin 10,000 mcg tablet,disintegrating 10,000 mcg PO DAILY magnesium citrate,mag oxide 250 mg Capsule 500 mg PO DAILY Held aspirin 81 mg tablet,delayed release (DR/EC) 81 mg PO ONCE PRN (Reason: palpitations) Qty: 30 0RF Hold Instructions: hold until the [facility] tells you it is ok to take (likely 5-7 days after your procedure has been completed) Rx Instructions: She takes PRN for palpitations overnight Discharge Orders: Discharge Order (Routine); Ordered 05/29/23 Ordered By: Israel Mahmood/Other Patient Handouts: Low-Fat Cooking Tips, ED Diet, Low Fat Admission Data Admit Date/Time: 05/28/23 00:12 Attending Provider: Israel Villafana Admit Provider: Ailin Ortega Primary Care Provider: Elsy Her Other Providers: Ailin Ortega ; Jes Briscoe Other Interventions: Discharge Summary Assessment (RN) Last Done: 05/29/23 16:17 Coding Diagnoses Abnormal LFTs R79.89 GERD (gastroesophageal reflux disease) K21.9 H/O gastric bypass Z98.84 Hypertension I10 Hypertension type: essential hypertension Hyperlipidemia E78.5 Hyperlipidemia type: unspecified Choledocholithiasis with obstruction K80.51
--- NOTE | 2023-05-29 16:05 | Communication Note ---
Date of Service: May 29, 2023 By CMS guidelines, a determination that the admission or continued stay is not medically necessary has been made by a member of the UR committee and a phy sician for this hospital stay, therefore a Code 44 will be completed and the Inpatient admission will be changed to outpatient. Israel Villafana MD Attending Physician
[2023-05-30] MEDS ORDERED: PANTOprazole 40 MG TAB PO SCH (06:30)
[2023-05-30 14:28] LABS: HBSAG NON-REACTIVE (NON-REACTIVE); Hepatitis A Antibody IgM NON-REACTIVE (NON-REACTIVE); Hepatitis B Core Antibody IgM NON-REACTIVE (NON-REACTIVE)
== END 2023-05-29 16:37 | disposition home or self-care (01) ==
LOC: ED 19:07 → SUATTDRO 05-28 00:12 → INTOOBSV 05-28 00:12 → 2N 05-28 00:12